=== PATIENT | female | born 1980 | race Hispanic/Latino ===

== ENCOUNTER 2018-08-23 08:28 | Emergency (ER) | payer OTHER ==
[2018-08-23 09:14] LABS: Absolute Lymphocytes (CBC) 2.7 K/uL (0.7-4.9); Absolute Monocytes 0.6 K/uL (0.1-1.3); Absolute Neutrophil 8.3 K/uL (1.8-8.0); Basophils % 1.1 % (0-1.3); Eosinophils % 0.8 % (0-4.4); Hematocrit 49.3 % (36.0-45.0); Lymphocytes % 22.6 % (15.3-44.8); MPV 7.7 fL (7.6-11.3); Monocytes % 5.2 % (3.3-12.3); RBC Red Blood Cell Count 5.84 M/uL (3.86-4.86)
[2018-08-23] MEDS ORDERED: KETOROLAC 30 MG/ML INJ ONE (09:15)
[2018-08-23 09:27] LABS: Potassium 3.7 mmol/L (3.5-5.1)
[2018-08-23] MEDS ORDERED: NA CHLORIDE 0.9% 1,000 ML ONE (09:52)
--- NOTE | 2018-08-23 10:04 | RAD REPORT ---
EXAM DESCRIPTION: RAD - Lumbar Spine 3 Views - 08/23/2018 9:19 am CLINICAL HISTORY: Back pain COMPARISON: None. FINDINGS: A three-view lumbar spine examination was performed. Lumbar bodies are normal in height an d alignment. No fracture or acute bony process seen. No disc space narrowing. No other significant fi ndings. No pars defects identified. IMPRESSION: Negative Lumbar Spine examination.
[2018-08-23 11:00] LABS: Blood Morphology Comment NOT SEEN (NOT SEEN); Platelet Estimate INCR; Platelets, Giant RARE
--- NOTE | 2018-08-23 11:03 | EDPHYS ---
Physician Documentation [facility] Name: Viviana Patricia Age: 37 yrs Sex: Female : 1980 Arrival Date: 08/23/2018 Time: 08:30 Bed 13 Private MD: Laura Mcgarry ED Physician Matti Brown HPI: 08/23 09:28 This 37 yrs old Female presents to ER via Ambulatory with complaints of Low kb Back Pain, Dizziness. 09:28 The patient presents with pain that is acute, with no known mechanism of injury. The kb symptoms are located in the lumbar area. The pain does not radiate. The problem was sustained without known cause. Onset: The symptoms/episode began/occurred yesterday. Modifying factors: The patient symptoms are alleviated by nothing, the patient symptoms are aggravated by any movement. Associated signs and symptoms: Pertinent positives: abdominal pain, vaginal bleeding, dizziness. Severity of symptoms: At their worst the symptoms were moderate, in the emergency department the symptoms are unchanged. The patient has not experienced similar symptoms in the past. The patient has not recently seen a physician. Pt reports she woke up with low back pain yesterday. Denies injury or trauma. Also reports vaginal bleeding for 8 days and suprapubic cramping, as well as dizziness when changing positions. . 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 - Social history:: Smoking status: Patient uses tobacco products, smokes one-half pack cigarettes per day. - Ebola Screening: : No symptoms or risks identified at this time. ROS: 09:26 Constitutional: Negative for fever, chills, and weight loss, Neck: Negative for injury, kb pain, and swelling, Cardiovascular: Negative for chest pain, palpitations, and edema, Respiratory: Negative for shortness of breath, cough, wheezing, and pleuritic chest pain, MS/Extremity: Negative for injury and deformity, Skin: Negative for injury, rash, and discoloration. 09:26 Abdomen/GI: Positive for abdominal cramps. 09:26 Back: Positive for pain with movement, of the lumbar area. 09: : Positive for vaginal bleeding. 09: Neuro: Positive for dizziness. Exam: : Constitutional: This is a well developed, well nourished patient who is awake, alert, kb and in no acute distress. Head/Face: Normocephalic, atraumatic. Eyes: Pupils equal round and reactive to light, extra-ocular motions intact. Lids and lashes normal. Conjunctiva and sclera are non-icteric and not injected. Cornea within normal limits. Periorbital areas with no swelling, redness, or edema. ENT: Nares patent. No nasal discharge, no septal abnormalities noted. Tympanic membranes are normal and external auditory canals are clear. Oropharynx with no redness, swelling, or masses, exudates, or evidence of obstruction, uvula midline. Mucous membranes moist. Neck: Trachea midline, no thyromegaly or masses palpated, and no cervical lymphadenopathy. Supple, full range of motion without nuchal rigidity, or vertebral point tenderness. No Meningismus. Chest/axilla: Normal chest wall appearance and motion. Nontender with no deformity. No lesions are appreciated. Cardiovascular: Regular rate and rhythm with a normal S1 and S2. No gallops, murmurs, or rubs. Normal PMI, no JVD. No pulse deficits. Respiratory: Lungs have equal breath sounds bilaterally, clear to auscultation and percussion. No rales, rhonchi or wheezes noted. No increased work of breathing, no retractions or nasal flaring. Abdomen/GI: Soft, non-tender, with normal bowel sounds. No distension or tympany. No guarding or rebound. No evidence of tenderness throughout. Skin: Warm, dry with normal turgor. Normal color with no rashes, no lesions, and no evidence of cellulitis. MS/ Extremity: Pulses equal, no cyanosis. Neurovascular intact. Full, normal range of motion. Neuro: Awake and alert, GCS 15, oriented to person, place, time, and situation. Cranial nerves II-XII grossly intact. Motor strength 5/5 in all extremities. Sensory grossly intact. Cerebellar exam normal. Normal gait. 09:26 Back: pain, that is mild, that is moderate, of the lumbar area, CVA tenderness, is absent. Vital Signs: 08:48 BP 159 / 117; Pulse 104; Resp 16 S; Temp 98.4(O); Pulse Ox 99% on R/A; Weight 83.91 kg jl7 (R); Height 5 ft. 1 in. (154.94 cm) (R); Pain 10/10; 08:57 BP 141 / 93 Sitting; Pulse 107; Resp 18; Pulse Ox 98% on R/A; mh5 08:59 BP 133 / 96 Standing; Pulse 107; Resp 20; Pulse Ox 97% on R/A; mh5 09:01 BP 139 / 90 Supine; Pulse 102; Resp 20; Pulse Ox 99% on R/A; 5 09:44 BP 134 / 83; Pulse 100; Resp 16 S; Pulse Ox 99% on R/A; Pain 10/10; jl7 10:57 BP 117 / 72; Pulse 86; Resp 17 S; Pulse Ox 98% on R/A; jl7 08:48 Body Mass Index 34.96 (83.91 kg, 154.94 cm) 7 MDM: 08:31 Patient medically screened. 09:26 Data reviewed: vital signs, nurses notes. Data interpreted: Pulse oximetry: on room air kb is 99 %. Interpretation: normal. 10:13 Counseling: I had a detailed discussion with the patient and/or guardian regarding: the kb historical points, exam findings, and any diagnostic results supporting the discharge/admit diagnosis, lab results, radiology results, the need for outpatient follow up, a family practitioner, to return to the emergency department if symptoms worsen or persist or if there are any questions or concerns that arise at home. 08/23 08:38 Order name: CBC with Diff; Complete Time: 11:02 kb 08/23 08:38 Order name: Basic Metabolic Panel; Complete Time: 09:30 kb 08/23 08:38 Order name: Lumbar Spine (3 Views) XRAY; Complete Time: 10:05 kb 08/23 09:19 Order name: Urine Dipstick--Ancillary (enter results) eb 08/23 09:19 Order name: Urine --Ancillary (enter results) 08/23 09:30 Order name: Manual Differential; Complete Time: 11:02 [facility] 08/23 08:38 Order name: Urine Dipstick-Ancillary (obtain specimen); Complete Time: 09:10 kb 08/23 08:38 Order name: Orthostatics; Complete Time: 09:10 kb 08/23 08:38 Order name: IV Start; Complete Time: 09:10 kb Administered Medications: 09:09 Drug: TORadol 30 mg Route: IVP; Site: left antecubital; jl7 09:44 Follow up: Response: No adverse reaction; Pain is unchanged, physician notified jl7 09:43 Drug: NS 0.9% 1000 ml Route: IV; Rate: 1000 ml; Site: left antecubital; jl7 11:25 Follow up: IV Status: Completed infusion jl7 Disposition: 08/24 08:54 Co-signature as Attending Physician, Matti Brown MD I agree with the assessment and dmitriy plan of care. Disposition: 08/23/18 11:02 Discharged to Home. Impression: Volume depletion, Low back pain. - Condition is Stable. - Discharge Instructions: Musculoskeletal Pain, Back Pain, Adult, Tfti-iq-Tvyn, Dehydration, Adult, Sdki-bg-Peck, Back Exercises, Lpqq-sl-Wkzy. - Prescriptions for Cyclobenzaprine 10 mg Oral Tablet - take 1 tablet by ORAL route every 8 hours As needed; 21 tablet. Diclofenac Sodium 75 mg Oral Tablet, Delayed Release (E.C.) - take 1 tablet by ORAL route 2 times per day As needed; 30 tablet. - Medication Reconciliation Form, Thank You Letter, Antibiotic Education, Prescription Opioid Use form. - Follow up: Emergency Department; When: As needed; Reason: Worsening of condition. Follow up: Private Physician; When: 2 - 3 days; Reason: Recheck today's complaints, Continuance of care, Re-evaluation by your physician. Signatures: Dispatcher [employer] Grace Shukla, PSYCHOLOGIST CHIEF-C PSYCHOLOGIST CHIEF-Matti Clement MD MD cha Leal, Jahala, RN RN jl7 Corrections: (The following items were deleted from the chart) 08/23 11:27 11:02 08/23/2018 11:02 Discharged to Home. Impression: Volume depletion; Low back pain. jl7 Condition is Stable. Discharge Instructions: Musculoskeletal Pain, Back Pain, Adult, Lpao-wu-Ofbb, Dehydration, Adult, Ibot-xw-Gmxc, Back Exercises, Ldkm-sm-Hyxq. Prescriptions for Cyclobenzaprine 10 mg Oral Tablet - take 1 tablet by ORAL route every 8 hours As needed; 21 tablet, Diclofenac Sodium 75 mg Oral Tablet, Delayed Release (E.C.) - take 1 tablet by ORAL route 2 times per day As needed; 30 tablet. and Forms are Medication Reconciliation Form, Thank You Letter, Antibiotic Education, Prescription Opioid Use. Follow up: Emergency Department; When: As needed; Reason: Worsening of condition. Follow up: Private Physician; When: 2 - 3 days; Reason: Recheck today's complaints, Continuance of care, Re-evaluation by your physician. kb
--- NOTE | 2018-08-23 11:03 | ER ---
Nurse's Notes [facility] Name: Viviana Patricia Age: 37 yrs Sex: Female : 1980 Arrival Date: 08/23/2018 Time: 08:30 Bed 13 Private MD: Laura Mcgarry Diagnosis: Volume depletion;Low back pain Presentation: 08/23 08:43 Presenting complaint: Patient states: Mid-low back pain started yesterday, denies jl7 trauma. Dizziness started this morning. Reports vaginal bleeding x 8 days. Transition of care: patient was not received from another setting of care. Onset of symptoms was August 22, 2018. Risk Assessment: Do you want to hurt yourself or someone else? Patient reports no desire to harm self or others. Initial Sepsis Screen: Does the patient meet any 2 criteria? No. Patient's initial sepsis screen is negative. Does the patient have a suspected source of infection? No. Patient's initial sepsis screen is negative. Care prior to arrival: None. 08:43 Method Of Arrival: Ambulatory [facility] 08:43 Acuity: SAMUEL 3 jl7 Triage Assessment: 08:48 General: Appears in no apparent distress. uncomfortable, Behavior is calm, cooperative, jl7 appropriate for age. Pain: Complains of pain in lumbar area Pain does not radiate. Pain currently is 10 out of 10 on a pain scale. Quality of pain is described as aching, sharp, Pain began 1 day ago. Is continuous. EENT: No signs and/or symptoms were reported regarding the EENT system. Neuro: Level of Consciousness is awake, alert, obeys commands, Oriented to person, place, time, situation. Cardiovascular: Patient's skin is warm and dry. Respiratory: Airway is patent Respiratory effort is even, unlabored, Respiratory pattern is regular, symmetrical. GI: No signs and/or symptoms were reported involving the gastrointestinal system. : No signs and/or symptoms were reported regarding the genitourinary system. Reports vaginal bleeding that is. Derm: Skin is pink, warm \T\ dry. Musculoskeletal: Reports pain in lumbar area. 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 - Social history:: Smoking status: Patient uses tobacco products, smokes one-half pack cigarettes per day. - Ebola Screening: : No symptoms or risks identified at this time. Screenin:45 Abuse screen: Denies threats or abuse. Denies injuries from another. Nutritional [facility] screening: No deficits noted. Tuberculosis screening: No symptoms or risk factors identified. Fall Risk IV access (20 points). Total Amaro Fall Scale indicates No Risk (0-24 pts). Assessment: 08:45 General: See triage assessment. [facility] 09:44 Reassessment: Patient appears in no apparent distress at this time. No changes from [facility] previously documented assessment. Patient and/or family updated on plan of care and expected duration. Pain level reassessed. Patient is alert, oriented x 3, equal unlabored respirations, skin warm/dry/pink. 10:57 Reassessment: Patient appears in no apparent distress at this time. No changes from [facility] previously documented assessment. Patient and/or family updated on plan of care and expected duration. Pain level reassessed. Patient is alert, oriented x 3, equal unlabored respirations, skin warm/dry/pink. Vital Signs: 08:48 BP 159 / 117; Pulse 104; Resp 16 S; Temp 98.4(O); Pulse Ox 99% on R/A; Weight 83.91 kg jl7 (R); Height 5 ft. 1 in. (154.94 cm) (R); Pain 10/10; 08:57 BP 141 / 93 Sitting; Pulse 107; Resp 18; Pulse Ox 98% on R/A; mh5 08:59 BP 133 / 96 Standing; Pulse 107; Resp 20; Pulse Ox 97% on R/A; mh5 09:01 BP 139 / 90 Supine; Pulse 102; Resp 20; Pulse Ox 99% on R/A; mh5 09:44 BP 134 / 83; Pulse 100; Resp 16 S; Pulse Ox 99% on R/A; Pain 10/10; jl7 10:57 BP 117 / 72; Pulse 86; Resp 17 S; Pulse Ox 98% on R/A; jl7 08:48 Body Mass Index 34.96 (83.91 kg, 154.94 cm) jl7 ED Course: 08:30 Patient arrived in ED. as 08:31 Laura Mcgarry MD is Private Physician. as 08:31 Tuyet Denson RN is Primary Nurse. jl7 08:31 Grace Acosta FNP-C [facility]. kb 08:31 Matti Brown MD is Attending Physician. kb 08:45 Triage completed. jl7 08:48 Arm band placed on right wrist. jl7 09:14 Initial lab(s) drawn, by me, sent to lab. Urine collected: clean catch specimen, mh5 cloudy. Inserted saline lock: 22 gauge in left antecubital area, using aseptic technique. Blood collected. 09:15 Patient has correct armband on for positive identification. Placed in gown. Bed in low mh5 position. Call light in reach. Side rails up X 1. Warm blanket given. Pillow given. Pulse ox on. NIBP on. 09:18 Lumbar Spine (3 Views) XRAY In Process Unspecified. EDMS 09:20 Basic Metabolic Panel Sent. 5 09:20 CBC with Diff Sent. 5 09:20 Urine --Ancillary (enter results) Sent. 5 09:20 Urine Dipstick--Ancillary (enter results) Sent. 5 11:26 No provider procedures requiring assistance completed. IV discontinued, intact, jl7 bleeding controlled, No redness/swelling at site. Pressure dressing applied. Administered Medications: 09:09 Drug: TORadol 30 mg Route: IVP; Site: left antecubital; jl7 09:44 Follow up: Response: No adverse reaction; Pain is unchanged, physician notified jl7 09:43 Drug: NS 0.9% 1000 ml Route: IV; Rate: 1000 ml; Site: left antecubital; jl7 11:25 Follow up: IV Status: Completed infusion jl7 Outcome: 11:02 Discharge ordered by . kb 11:25 Discharged to home ambulatory. jl7 11:25 Condition: stable 11:25 Discharge instructions given to patient, Instructed on discharge instructions, follow up and referral plans. medication usage, Demonstrated understanding of instructions, follow-up care, medications, Prescriptions given X 2. 11:27 Patient left the ED. jl7 Signatures: Dispatcher [employer] EDGrace Cordova, COURTNEY SCHAEFER-Yolanda [facility] Tuyet Denson RN RN jl7 Corrections: (The following items were deleted from the chart) 08:52 08:48 LMP 07/14/2018 maggi tay 09:48 09:44 BP 134 / 123; Pulse 100bpm; Resp 16bpm; Spontaneous; Pulse Ox 99% RA; Pain 10/10; maggi jl7
[2018-08-23 11:32] LABS: Urine Blood 3+ (NEG); Urine Glucose NEGATIVE (NEG); Urine Protein 1+ (NEG)
[2018-08-23 11:36] VITALS: TEMP 98.4
[2018-08-23 11:42] VITALS: BP 117/72; O2SAT 98
== END 2018-08-23 11:27 | disposition home or self-care (01) ==
LOC: ER 08:28
DX: E86.9 Volume depletion, unspecified (principal); I10 Essential (primary) hypertension; F20.9 Schizophrenia, unspecified; F31.9 Bipolar disorder, unspecified; F32.9 Major depressive disorder, single episode, unspecified; F41.9 Anxiety disorder, unspecified; F17.210 Nicotine dependence, cigarettes, uncomplicated
CPT/HCPCS: 36415; 72100; 80048; 81003; 81025; 85025; 96361; 96374; 99284; J7030

== ENCOUNTER 2018-12-31 09:57 | Emergency (ER) | payer BC, OTHER ==
[2018-12-31] MEDS ORDERED: hydrOXYzine HCl 25 MG TAB ONE (10:38)
[2018-12-31] MEDS ORDERED: ONDANSETRON 4 MG/2 ML VIAL ONE ×2 (10:38→11:57)
[2018-12-31 11:08] LABS: Absolute Lymphocytes (CBC) 2.8 K/uL (0.7-4.9); Basophils % 1.1 % (0-1.3); Hematocrit 48.5 % (36.0-45.0); Lymphocytes % 29.7 % (15.3-44.8); MPV 7.9 fL (7.6-11.3); RBC Red Blood Cell Count 5.71 M/uL (3.86-4.86)
[2018-12-31 11:20] LABS: ALT/SGPT 69 U/L (12-78); AST/SGOT 43 U/L (15-37); Albumin 3.4 g/dL (3.4-5.0); Alkaline Phosphatase 184 U/L (45-117); BUN Blood Urea Nitrogen 11 mg/dL (7-18); Bicarbonate 29 mmol/L (21-32); Bilirubin Direct < 0.1 mg/dL (0-0.2); Bilirubin Total 0.3 mg/dL (0.2-1.0); Glucose Level 184 mg/dL (74-106); Lipase 125 U/L (73-393); Potassium 3.6 mmol/L (3.5-5.1); Protein, Total 7.8 g/dL (6.4-8.2); Sodium Level 139 mmol/L (136-145)
[2018-12-31] MEDS ORDERED: FAMOTIDINE 20 MG/2 ML VIAL IV ONE (11:57)
[2018-12-31] MEDS ORDERED: NA CHLORIDE 0.9% 1,000 ML ONE (12:41)
[2018-12-31 12:47] LABS: Urine Blood NEGATIVE (NEG); Urine Glucose NEGATIVE (NEG); Urine Protein 1+ (NEG); Urine Specific Gravity >1.030 (1.005-1.030)
--- NOTE | 2018-12-31 12:51 | RAD REPORT ---
EXAM DESCRIPTION: CTAbdomen Pelvis W Contrast - 12/31/2018 12:32 pm CLINICAL HISTORY: Abdominal pain. ABD PAIN COMPARISON: <Comparisons> TECHNIQUE: Biphasic CT imaging of the abdomen and pelvis was performed with 100 ml non-ionic IV cont rast. All CT scans are performed using dose optimization technique as appropriate and may include automated exposure control or mA/KV adjustment according to patient size. FINDINGS: The lung bases are clear. The liver demonstrates diffuse fatty infiltration. Spleen, pancreas, adrenal glands and kidneys are w ithin normal limits. Cholecystectomy. No bowel obstruction, free air, free fluid or abscess. Appendectomy. No evidence of significant lym phadenopathy. No suspicious bony findings. IMPRESSION: No acute intra-abdominal or pelvic finding.
--- NOTE | 2018-12-31 13:20 | ER ---
Nurse's Notes [facility] Name: Viviana Patricia Age: 38 yrs Sex: Female : 1980 Arrival Date: 12/31/2018 Time: 09:58 Bed 17 Private MD: Diagnosis: Rash and other nonspecific skin eruption;Generalized abdominal pain Presentation: 12/31 10:04 Presenting complaint: Patient states: I have been nauseous for the last few days, la1 having belly pain, pain in both my arms and legs, dizziness. Transition of care: patient was not received from another setting of care. Onset of symptoms was December 31, 2018. Risk Assessment: Do you want to hurt yourself or someone else? Patient reports no desire to harm self or others. Initial Sepsis Screen: Does the patient meet any 2 criteria? No. Patient's initial sepsis screen is negative. Does the patient have a suspected source of infection? No. Patient's initial sepsis screen is negative. Care prior to arrival: None. 10:04 Method Of Arrival: Ambulatory la1 10:04 Acuity: SAMUEL 3 la1 Historical: - Allergies: 10:05 No Known Allergies; la1 - PMHx: 10:05 Anxiety; Bipolar disorder; chronic painL shoulder-bursitis; Depression; Hypertension; la1 Schizophrenia; - PSHx: 10:05 right ovarian sx; Cholecystectomy; Appendectomy; ; D \T\ C; la1 - Immunization history:: Adult Immunizations up to date. - Social history:: Smoking status: Patient uses tobacco products, smokes one-half pack cigarettes per day. - Ebola Screening: : No symptoms or risks identified at this time. Screenin:20 Abuse screen: Denies threats or abuse. Nutritional screening: No deficits noted. aa5 Tuberculosis screening: No symptoms or risk factors identified. Fall Risk None identified. Assessment: 10:20 General: Appears comfortable, Behavior is calm, cooperative. Pain: Complains of pain in aa5 right upper quadrant Pain does not radiate. Pain currently is 8 out of 10 on a pain scale. Quality of pain is described as sharp, Pain began 2-3 days ago. Is continuous. Neuro: Level of Consciousness is awake, alert, obeys commands, Oriented to person, place, time, situation. Cardiovascular: Heart tones S1 S2 present Rhythm is regular. Respiratory: Airway is patent Respiratory effort is even, unlabored, Respiratory pattern is regular, symmetrical, Breath sounds are clear bilaterally. GI: Abdomen is round Bowel sounds present X 4 quads. Abd is soft and non tender X 4 quads. Reports nausea, Patient currently denies diarrhea, vomiting. : No signs and/or symptoms were reported regarding the genitourinary system. EENT: No signs and/or symptoms were reported regarding the EENT system. Derm: Skin is pink, warm \T\ dry. Rash noted that is itchy, red, raised, on right arm, left arm, right leg and left leg. Musculoskeletal: Range of motion: intact in all extremities. 12:00 Reassessment: Patient is alert, oriented x 3, equal unlabored respirations, skin aa5 warm/dry/pink. Patient states symptoms have not improved. DRY KILN OPERATOR notified. . 13:00 Reassessment: Patient is alert, oriented x 3, equal unlabored respirations, skin aa5 warm/dry/pink. Patient states feeling better. 13:41 Reassessment: Patient is alert, oriented x 3, equal unlabored respirations, skin aa5 warm/dry/pink. Patient states feeling better. Vital Signs: 10:05 BP 138 / 91; Pulse 85; Resp 16; Temp 97.8; Pulse Ox 98% on R/A; Weight 95.25 kg; Height la1 5 ft. 2 in. (157.48 cm); 10:05 Body Mass Index 38.41 (95.25 kg, 157.48 cm) la1 ED Course: 09:58 Patient arrived in ED. cf2 10:05 Triage completed. la1 10:06 Arm band placed on right wrist. la1 10:17 EKG done, by tower technician. reviewed by Matti Brown MD. sm3 10:20 Patient has correct armband on for positive identification. Placed in gown. Bed in low aa5 position. Call light in reach. Side rails up X2. 10:26 More Francisco, MARE is Primary Nurse. aa5 10:28 Grace Acosta FNP-C is PHCP. kb 10:28 Matti Brown MD is Attending Physician. kb 10:40 Initial lab(s) drawn, by id, sent to lab. Inserted saline lock: 20 gauge in right aa5 antecubital area, using aseptic technique. Blood collected. 12:33 CT Abd/Pelvis - IV Contrast Only In Process Unspecified. EDMS 13:41 No provider procedures requiring assistance completed. IV discontinued, intact, aa5 bleeding controlled, No redness/swelling at site. Pressure dressing applied. Administered Medications: 10:39 Drug: Atarax 50 mg Route: PO; aa5 11:30 Follow up: Response: No adverse reaction aa5 10:40 Drug: Zofran 4 mg Route: IVP; Site: right antecubital; aa5 10:50 Follow up: Response: No adverse reaction aa5 12:03 Drug: Zofran 4 mg Route: IVP; Site: right antecubital; aa5 12:10 Follow up: Response: No adverse reaction aa5 12:03 Drug: Pepcid 20 mg Route: IVP; Site: right antecubital; aa5 12:10 Follow up: Response: No adverse reaction aa5 12:50 Drug: NS 0.9% 1000 ml Route: IV; Rate: 1000 ml; Site: right antecubital; aa5 13:38 Follow up: IV Status: Completed infusion; IV Intake: 1000ml aa5 Intake: 13:38 IV: 1000ml; Total: 1000ml. aa5 Outcome: 13:19 Discharge ordered by . kb 13:41 Discharged to home ambulatory. aa5 13:41 Condition: stable 13:41 Discharge instructions given to patient, Instructed on discharge instructions, follow up and referral plans. medication usage, Demonstrated understanding of instructions, follow-up care, medications, Prescriptions given X 4. 13:43 Patient left the ED. aa5 Signatures: Dispatcher [employer] EDMS Grace Acosta, COURTNEY SCHAEFER-More Mckinley, RN RN aa5 Cedrick Perez, RN RN sandra1 Sierra Espinosa 3 Kendal Byrd
--- NOTE | 2018-12-31 13:20 | EDPHYS ---
Physician Documentation [facility] Name: Viviana Patricia Age: 38 yrs Sex: Female : 1980 Arrival Date: 12/31/2018 Time: 09:58 Bed 17 Private MD: MARY Physician Matti Brown HPI: 12/31 11:03 This 38 yrs old Female presents to ER via Ambulatory with complaints of kb Nausea, Abdominal Pain. 11:03 The patient presents with abdominal pain that is diffuse. Onset: The symptoms/episode kb began/occurred 2 day(s) ago. The symptoms do not radiate. Associated signs and symptoms: Pertinent positives: nausea. The symptoms are described as constant. Modifying factors: The symptoms are alleviated by nothing, the symptoms are aggravated by nothing. Severity of pain: At its worst the pain was moderate in the emergency department the pain is unchanged. The patient has not experienced similar symptoms in the past. The patient has not recently seen a physician. Pt reports abd pain, nausea and a rash with itching that started 2-3 days ago. Historical: - Allergies: 10:05 No Known Allergies; la1 - PMHx: 10:05 Anxiety; Bipolar disorder; chronic painL shoulder-bursitis; Depression; Hypertension; la1 Schizophrenia; - PSHx: 10:05 right ovarian sx; Cholecystectomy; Appendectomy; ; D \T\ C; la1 - Immunization history:: Adult Immunizations up to date. - Social history:: Smoking status: Patient uses tobacco products, smokes one-half pack cigarettes per day. - Ebola Screening: : No symptoms or risks identified at this time. ROS: 11:01 Constitutional: Negative for fever, chills, and weight loss, ENT: Negative for injury, kb pain, and discharge, Neck: Negative for injury, pain, and swelling, Cardiovascular: Negative for chest pain, palpitations, and edema, Respiratory: Negative for shortness of breath, cough, wheezing, and pleuritic chest pain, Back: Negative for injury and pain, : Negative for injury, bleeding, discharge, and swelling, MS/Extremity: Negative for injury and deformity, Neuro: Negative for headache, weakness, numbness, tingling, and seizure. 11:01 Abdomen/GI: Positive for abdominal pain, nausea, Negative for vomiting, diarrhea, constipation. 11:01 Skin: Positive for rash, diffusely. Exam: 11:01 Constitutional: This is a well developed, well nourished patient who is awake, alert, kb and in no acute distress. Head/Face: Normocephalic, atraumatic. ENT: Nares patent. No nasal discharge, no septal abnormalities noted. Tympanic membranes are normal and external auditory canals are clear. Oropharynx with no redness, swelling, or masses, exudates, or evidence of obstruction, uvula midline. Mucous membranes moist. Neck: Trachea midline, no thyromegaly or masses palpated, and no cervical lymphadenopathy. Supple, full range of motion without nuchal rigidity, or vertebral point tenderness. No Meningismus. Chest/axilla: Normal chest wall appearance and motion. Nontender with no deformity. No lesions are appreciated. Cardiovascular: Regular rate and rhythm with a normal S1 and S2. No gallops, murmurs, or rubs. Normal PMI, no JVD. No pulse deficits. Respiratory: Lungs have equal breath sounds bilaterally, clear to auscultation and percussion. No rales, rhonchi or wheezes noted. No increased work of breathing, no retractions or nasal flaring. Abdomen/GI: Soft, non-tender, with normal bowel sounds. No distension or tympany. No guarding or rebound. No evidence of tenderness throughout. Back: No spinal tenderness. No costovertebral tenderness. Full range of motion. MS/ Extremity: Pulses equal, no cyanosis. Neurovascular intact. Full, normal range of motion. Neuro: Awake and alert, GCS 15, oriented to person, place, time, and situation. Cranial nerves II-XII grossly intact. Motor strength 5/5 in all extremities. Sensory grossly intact. Cerebellar exam normal. Normal gait. 11:01 Skin: rash can be described as macular, papular, and is diffusely located. Vital Signs: 10:05 BP 138 / 91; Pulse 85; Resp 16; Temp 97.8; Pulse Ox 98% on R/A; Weight 95.25 kg; Height la1 5 ft. 2 in. (157.48 cm); 10:05 Body Mass Index 38.41 (95.25 kg, 157.48 cm) la1 MDM: 10:28 Patient medically screened. 11:02 Data reviewed: vital signs, nurses notes. Data interpreted: Pulse oximetry: on room air kb is 98 %. Interpretation: normal. 13:34 Counseling: I had a detailed discussion with the patient and/or guardian regarding: the kb historical points, exam findings, and any diagnostic results supporting the discharge/admit diagnosis, lab results, radiology results, the need for outpatient follow up, a family practitioner, to return to the emergency department if symptoms worsen or persist or if there are any questions or concerns that arise at home. 12/31 10:36 Order name: CBC with Diff; Complete Time: 11:16 kb 12/31 10:36 Order name: Basic Metabolic Panel; Complete Time: 11:27 kb 12/31 10:36 Order name: Hepatic Function; Complete Time: 11:27 kb 12/31 10:36 Order name: Lipase; Complete Time: 11:27 kb 12/31 12:30 Order name: Urine Dipstick--Ancillary (enter results); Complete Time: 12:49 hb 12/31 12:30 Order name: Urine --Ancillary (enter results); Complete Time: 12:49 hb 12/31 10:36 Order name: IV Saline Lock; Complete Time: 10:48 kb 12/31 10:36 Order name: Labs collected and sent; Complete Time: 10:48 kb 12/31 12:08 Order name: CT Abd/Pelvis - IV Contrast Only; Complete Time: 12:55 kb Administered Medications: 10:39 Drug: Atarax 50 mg Route: PO; aa5 11:30 Follow up: Response: No adverse reaction aa5 10:40 Drug: Zofran 4 mg Route: IVP; Site: right antecubital; aa5 10:50 Follow up: Response: No adverse reaction aa5 12:03 Drug: Zofran 4 mg Route: IVP; Site: right antecubital; aa5 12:10 Follow up: Response: No adverse reaction aa5 12:03 Drug: Pepcid 20 mg Route: IVP; Site: right antecubital; aa5 12:10 Follow up: Response: No adverse reaction aa5 12:50 Drug: NS 0.9% 1000 ml Route: IV; Rate: 1000 ml; Site: right antecubital; aa5 13:38 Follow up: IV Status: Completed infusion; IV Intake: 1000ml aa5 Disposition: 15:32 Co-signature as Attending Physician, Matti Brown MD I agree with the assessment and dmitriy plan of care. PA/CONSULTING HR PROFESSIONAL's history reviewed, patient interviewed, and examined. Disposition: 12/31/18 13:19 Discharged to Home. Impression: Rash and other nonspecific skin eruption, Generalized abdominal pain. - Condition is Stable. - Discharge Instructions: Abdominal Pain, Adult, [id number], Rash, [id number], Allergies, [id number]. - Prescriptions for Hydroxyzine HCl 50 mg Oral Tablet - take 1 tablet by ORAL route every 8 hours As needed; 20 tablet. Pepcid 20 mg Oral Tablet - take 1 tablet by ORAL route every 12 hours for 5 days; 10 tablet. Prednisone 20 mg Oral Tablet - take 1 tablet by ORAL route once daily for 5 days; 5 tablet. Zofran 4 mg Oral Tablet - take 1 tablet by ORAL route every 6 hours As needed; 20 tablet. - Medication Reconciliation Form, Thank You Letter, Antibiotic Education, Prescription Opioid Use, Work release form form. - Follow up: Emergency Department; When: As needed; Reason: Worsening of condition. Follow up: Private Physician; When: 2 - 3 days; Reason: Recheck today's complaints, Continuance of care, Re-evaluation by your physician. Signatures: Dispatcher [employer] EDLA Grace Acosta, [employer] RADIO OPERATOR-C [employer] RADIO OPERATOR-Matti Clement MD MD cha Calderon, Audri, RN RN aa5 Cedrick Perez RN RN la1 Corrections: (The following items were deleted from the chart) 13:43 13:19 12/31/2018 13:19 Discharged to Home. Impression: Rash and other nonspecific skin aa5 eruption; Generalized abdominal pain. Condition is Stable. Forms are Medication Reconciliation Form, Thank You Letter, Antibiotic Education, Prescription Opioid Use. Follow up: Emergency Department; When: As needed; Reason: Worsening of condition. Follow up: Private Physician; When: 2 - 3 days; Reason: Recheck today's complaints, Continuance of care, Re-evaluation by your physician. kb
[2018-12-31 14:21] VITALS: BP 138/91; TEMP 97.8; O2SAT 98
--- NOTE | 2019-01-01 07:16 | EKG ---
Test Date: 2018-12-31 Test Time: 10:14:03 Bilingual Teacher Aide: MATT MEASUREMENT RESULTS: Intervals: Rate: 76 MT: 166 QRSD: 86 QT: 378 QTc: 425 [place]: P: 65 MT: 166 QRS: 81 T: 57 INTERPRETIVE STATEMENTS: Normal sinus rhythm Right atrial enlargement Borderline ECG Compared to ECG 05/29/2017 10:41:44 Sinus tachycardia no longer present Electronically Signed On 01-01-19 07:13:40 CDT by Dario Cortez
== END 2018-12-31 13:43 | disposition home or self-care (01) ==
LOC: ER 09:57
DX: R10.84 Generalized abdominal pain (principal); I10 Essential (primary) hypertension; F17.210 Nicotine dependence, cigarettes, uncomplicated
CPT/HCPCS: 96361; 93005; 85025; 80048; 36415; 81025; 80076; 81003; 83690; 74177; 96375; 96374; 99284; Q9967; J7030; J2405 ×2

== ENCOUNTER 2019-03-17 10:43 | Emergency (ER) | payer BC ==
[2019-03-17 11:38] LABS: Absolute Lymphocytes (CBC) 2.6 K/uL (0.7-4.9); Basophils % 0.3 % (0-1.3); Hematocrit 45.4 % (36.0-45.0); Lymphocytes % 32.4 % (15.3-44.8); RBC Red Blood Cell Count 5.43 M/uL (3.86-4.86)
[2019-03-17 11:49] LABS: Protime INR 1.08
[2019-03-17 12:01] LABS: ALT/SGPT 58 U/L (12-78); AST/SGOT 34 U/L (15-37); Albumin 3.4 g/dL (3.4-5.0); Alkaline Phosphatase 174 U/L (45-117); BUN Blood Urea Nitrogen 8 mg/dL (7-18); Bicarbonate 26 mmol/L (21-32); Bilirubin Direct < 0.1 mg/dL (0-0.2); Bilirubin Total 0.4 mg/dL (0.2-1.0); Glucose Level 97 mg/dL (74-106); Lipase 103 U/L (73-393); Magnesium 2.3 mg/dL (1.8-2.4); NT PRO-BNP 31 pg/mL (<125); Potassium 3.7 mmol/L (3.5-5.1); Protein, Total 7.6 g/dL (6.4-8.2); Sodium Level 137 mmol/L (136-145); Troponin (Emerg Dept Use Only) < 0.02 ng/mL (0.0-0.045)
--- NOTE | 2019-03-17 12:03 | RAD REPORT ---
EXAM DESCRIPTION: [facility] Single View03/17/2019 11:45 am CLINICAL HISTORY: Chest pain COMPARISON: 2018 FINDINGS: The lungs appear clear of acute infiltrate. The heart is normal size IMPRESSION: No acute abnormalities displayed
--- NOTE | 2019-03-17 12:46 | EKG ---
Test Date: 2019-03-17 Test Time: 11:04:27 Health Analyst: KAYLIN MEASUREMENT RESULTS: Intervals: Rate: 80 [place]: 162 QRSD: 82 QT: 410 QTc: 472 [place]: P: 63 [place]: 162 QRS: 41 T: 45 INTERPRETIVE STATEMENTS: Normal sinus rhythm Normal ECG Compared to ECG 12/31/2018 10:14:03 Atrial abnormality no longer present Electronically Signed On 03-17-19 12:45:18 LENS MAKER by Olivier Mcenal
[2019-03-17] MEDS ORDERED: ALBUTEROL 2.5 MG/3 ML NEB SOL ONE (12:59)
[2019-03-17] MEDS ORDERED: IPRATROPIUM BROM 0.5MG/2.5ML ONE (12:59)
--- NOTE | 2019-03-17 13:04 | ER ---
Nurse's Notes [facility] Name: Viviana Patricia Age: 38 yrs Sex: Female : 1980 Arrival Date: 03/17/2019 Time: 10:50 Bed 5 Private MD: Diagnosis: Other chest pain Presentation: 03/17 11:00 Presenting complaint: Patient states: chest pressure radiating to neck that began 2 aa5 days ago. Pt reports SOB. Pt denies cough/congestion. Reports fatigue. Transition of care: patient was not received from another setting of care. Onset of symptoms was March 2019. Risk Assessment: Do you want to hurt yourself or someone else? Patient reports no desire to harm self or others. Initial Sepsis Screen: Does the patient meet any 2 criteria? No. Patient's initial sepsis screen is negative. Does the patient have a suspected source of infection? No. Patient's initial sepsis screen is negative. Care prior to arrival: None. 11:00 Acuity: SAMUEL 3 aa5 11:00 Method Of Arrival: Ambulatory aa5 RADIOGRAPHER MAMMOGRAPHER: 11:02 LMP 03/15/2019 aa5 Historical: - Allergies: 11:02 No Known Allergies; aa5 - PMHx: 11:02 Anxiety; Bipolar disorder; chronic painL shoulder-bursitis; Depression; Hypertension; aa5 Schizophrenia; Hyperlipidemia; Diabetes - IDDM; - PSHx: 11:02 right ovarian sx; Cholecystectomy; Appendectomy; ; D \T\ C; aa5 - Immunization history:: Flu vaccine is not up to date. - Social history:: Smoking status: Patient uses tobacco products, smokes one-half pack cigarettes per day. - Ebola Screening: : No symptoms or risks identified at this time. Screenin:32 Abuse screen: Denies threats or abuse. Denies injuries from another. Nutritional jl7 screening: No deficits noted. Tuberculosis screening: No symptoms or risk factors identified. Fall Risk IV access (20 points). Total Amaro Fall Scale indicates No Risk (0-24 pts). Assessment: 11:32 General: Appears in no apparent distress. uncomfortable, Behavior is cooperative, jl7 anxious. Pain: Complains of pain in chest Pain radiates to neck Pain currently is 9 out of 10 on a pain scale. Quality of pain is described as pressure, sharp, Pain began 2-3 days ago. Is continuous. Neuro: Level of Consciousness is awake, alert, obeys commands, Oriented to person, place, time, situation. Cardiovascular: Heart tones S1 S2 present Patient's skin is warm and dry. Rhythm is regular. Respiratory: Airway is patent Respiratory effort is even, unlabored, Respiratory pattern is regular, symmetrical, Breath sounds are clear bilaterally. GI: Abdomen is round non-distended, Bowel sounds present X 4 quads. Abd is soft X 4 quads Abdomen is tender to palpation in epigastric area and right upper quadrant. : No signs and/or symptoms were reported regarding the genitourinary system. EENT: No signs and/or symptoms were reported regarding the EENT system. Derm: Skin is pink, warm \T\ dry. Musculoskeletal: No signs and/or symptoms reported regarding the musculoskeletal system. 12:30 Reassessment: Patient appears in no apparent distress at this time. Patient and/or jl7 family updated on plan of care and expected duration. Pain level reassessed. Patient is alert, oriented x 3, equal unlabored respirations, skin warm/dry/pink. Patient states feeling better. Patient states symptoms have improved. Vital Signs: 11:02 BP 134 / 84; Pulse 85; Resp 18 S; Temp 98.2(O); Pulse Ox 99% on R/A; Weight 95.25 kg aa (R); Height 5 ft. 2 in. (157.48 cm) (R); Pain 9/10; 11:35 BP 116 / 80; Pulse 81; Resp 16 S; Pulse Ox 100% on R/A; Pain 9/10; jl7 12:08 BP 105 / 73; Pulse 94; Resp 16; Pulse Ox 98% ; sv 12:50 BP 105 / 73; Pulse 88; Resp 16; Pulse Ox 99% ; sv 13:30 BP 111 / 79; Pulse 80; Resp 16 S; Pulse Ox 100% on R/A; jl7 11:02 Body Mass Index 38.41 (95.25 kg, 157.48 cm) [facility] ED Course: 10:50 Patient arrived in ED. aa5 11:00 Arm band placed on. aa5 11:01 Triage completed. aa5 11:04 EKG completed in triage. Results shown to . aa5 11:06 Tuyet Denson RN is Primary Nurse. jl7 11:08 Matti Michelle PA is PHCP. cp 11:08 Mayur Roth MD is Attending Physician. cp 11:20 Missed attempt(s): 20 gauge in right antecubital area. Bleeding controlled, band aid jl7 applied, catheter tip intact. 11:25 Initial lab(s) drawn, by me, sent to lab. Inserted saline lock: 22 gauge in left jl7 forearm, using aseptic technique. Blood collected. Patient maintains SpO2 saturation greater than 95% on room air. 11:32 Patient has correct armband on for positive identification. Placed in gown. Bed in low jl7 position. Call light in reach. Side rails up X 1. color television console monitor on. Pulse ox on. NIBP on. Warm blanket given. 11:44 XRAY Chest (1 view) In Process Unspecified. EDMS 13:41 No provider procedures requiring assistance completed. IV discontinued, intact, jl7 bleeding controlled, No redness/swelling at site. Pressure dressing applied. Administered Medications: 13:03 Drug: Albuterol 2.5 mg Route: Inhalation; jl7 13:40 Follow up: Response: No adverse reaction jl7 13:03 Drug: AtroVENT Aerosol 0.5 mg Route: Inhalation; jl7 13:40 Follow up: Response: No adverse reaction jl7 Outcome: 13:03 Discharge ordered by MD. cp 13:41 Discharged to home ambulatory. jl7 13:41 Condition: stable 13:41 Discharge instructions given to patient, Instructed on discharge instructions, follow up and referral plans. medication usage, Demonstrated understanding of instructions, follow-up care, medications, Prescriptions given X 2. 13:41 Patient left the ED. jl7 Signatures: Dispatcher [employer] EDWY Sahra Hawthorne, RN More Parker RN RN aa5 Matti Michelle PA PA cp Leal, Jahala, RN RN jl7
--- NOTE | 2019-03-17 13:05 | EDPHYS ---
Physician Documentation [facility] Name: Viviana Patricia Age: 38 yrs Sex: Female : 1980 Arrival Date: 03/17/2019 Time: 10:50 Bed 5 Private MD: ED Physician Mayur Roth HPI: 03/17 11:20 This 38 yrs old Female presents to ER via Ambulatory with complaints of Chest cp Pain. 11:20 The patient or guardian reports chest pain that is located primarily in the anterior cp chest wall, bilaterally. 11:20 The pain radiates to neck. cp 11:20 Associated signs and symptoms: Pertinent positives: lightheadedness, shortness of cp breath, Pertinent negatives: abdominal pain, cough, diaphoresis, headache, lower extremity pain, lower extremity swelling, palpitations, recent travel, syncope. The chest pain is described as a heaviness, a pressure, sharp. Duration: The patient or guardian reports multiple episodes, that are intermittent. Severity of pain: in the emergency department the pain has improved moderately. 11:20 Patient reports chest pain started 2 days ago. cp DIRECTOR EMERGENCY: 11:02 LMP 03/15/2019 aa5 Historical: - Allergies: 11:02 No Known Allergies; aa5 - PMHx: 11:02 Anxiety; Bipolar disorder; chronic painL shoulder-bursitis; Depression; Hypertension; aa5 Schizophrenia; Hyperlipidemia; Diabetes - IDDM; - PSHx: 11:02 right ovarian sx; Cholecystectomy; Appendectomy; ; D \T\ C; aa5 - Immunization history:: Flu vaccine is not up to date. - Social history:: Smoking status: Patient uses tobacco products, smokes one-half pack cigarettes per day. - Ebola Screening: : No symptoms or risks identified at this time. ROS: 11:25 Eyes: Negative for injury, pain, redness, and discharge. cp 11:25 Constitutional: Positive for fatigue, Negative for body aches, chills, fever. cp 11:25 ENT: Negative for drainage from ear(s), ear pain, sore throat, difficulty swallowing, cp difficulty handling secretions. 11:25 Neck: Negative for pain with movement, pain at rest, stiffness, bony tenderness. 11:25 Cardiovascular: Positive for chest pain, Negative for edema, palpitations. 11:25 Respiratory: Positive for shortness of breath, Negative for cough, wheezing. 11:25 Abdomen/GI: Negative for abdominal pain, nausea, vomiting, and diarrhea, constipation, black/tarry stool, rectal bleeding. 11:25 Back: Negative for injury or acute deformity. 11:25 : Negative for urinary symptoms. 11:25 Skin: Negative for cellulitis, rash. 11:25 Neuro: Negative for altered mental status, dizziness, headache, numbness, syncope, weakness. 11:25 All other systems are negative. Exam: 11:10 ECG was reviewed by the Attending Physician. cp 11:30 Constitutional: The patient appears in no acute distress, alert, awake, cp non-diaphoretic, non-toxic, well developed, well nourished. 11:30 Head/Face: Normocephalic, atraumatic. Eyes: Pupils equal round and reactive to light, cp extra-ocular motions intact. Lids and lashes normal. Conjunctiva and sclera are non-icteric and not injected. Cornea within normal limits. Periorbital areas with no swelling, redness, or edema. ENT: Nares patent. No nasal discharge, no septal abnormalities noted. Tympanic membranes are normal and external auditory canals are clear. Oropharynx with no redness, swelling, or masses, exudates, or evidence of obstruction, uvula midline. Mucous membranes moist. 11:30 Chest/axilla: Inspection: normal, Palpation: crepitus, is not appreciated, tenderness, that is mild, of the anterior aspect of left upper chest. 11:30 Cardiovascular: Rate: normal, Rhythm: regular, Pulses: Pulses are 2+ in right radial artery and left radial artery. Heart sounds: murmur, not appreciated, Edema: is not appreciated, JVD: is not appreciated. 11:30 Respiratory: the patient does not display signs of respiratory distress, Respirations: normal, no use of accessory muscles, no retractions, no splinting, no tachypnea, labored breathing, is not present, Breath sounds: bronchial sounds, that are mild, are heard diffusely, decreased breath sounds, are not appreciated, stridor, is not appreciated, wheezing: is not appreciated. 11:30 Abdomen/GI: Inspection: abdomen appears normal, Bowel sounds: active, all quadrants, Palpation: soft, in all quadrants, mild abdominal tenderness, in the epigastric area and right upper quadrant, voluntary guarding, is not appreciated, involuntary guarding, is not appreciated. 11:30 Back: ROM is normal. 11:30 Skin: no rash present. 11:30 Neuro: Orientation: to person, place \T\ time. Mentation: is normal, Cerebellar function: is grossly normal, Motor: moves all fours, strength is normal, Sensation: is normal. Vital Signs: 11:02 BP 134 / 84; Pulse 85; Resp 18 S; Temp 98.2(O); Pulse Ox 99% on R/A; Weight 95.25 kg aa5 (R); Height 5 ft. 2 in. (157.48 cm) (R); Pain 9/10; 11:35 BP 116 / 80; Pulse 81; Resp 16 S; Pulse Ox 100% on R/A; Pain 9/10; jl7 12:08 BP 105 / 73; Pulse 94; Resp 16; Pulse Ox 98% ; sv 12:50 BP 105 / 73; Pulse 88; Resp 16; Pulse Ox 99% ; sv 13:30 BP 111 / 79; Pulse 80; Resp 16 S; Pulse Ox 100% on R/A; jl7 11:02 Body Mass Index 38.41 (95.25 kg, 157.48 cm) aa5 MDM: 11:08 Patient medically screened. cp 11:35 Differential diagnosis: acute myocardial infarction, acute pericarditis, anxiety, cp costochondritis, myocarditis, pericarditis, pleurisy, pneumonia, pneumothorax, pulmonary embolus, stable angina, unstable angina. 13:03 Data reviewed: vital signs, nurses notes, lab test result(s), EKG, radiologic studies, cp plain films. 13:03 Test interpretation: by ED physician or midlevel provider: ECG, plain radiologic cp studies, chest xray negative for infiltrates. Counseling: I had a detailed discussion with the patient and/or guardian regarding: the historical points, exam findings, and any diagnostic results supporting the discharge/admit diagnosis, lab results, radiology results, the need for outpatient follow up, a family practitioner, to return to the emergency department if symptoms worsen or persist or if there are any questions or concerns that arise at home. Response to treatment: the patient's symptoms have mildly improved after treatment, and as a result, I will discharge patient. Special discussion: Based on the patient's history, exam, and Dx evaluation, there is no indication for emergent intervention or inpatient Tx. It is understood by the patient/guardian that if the Sx's persist or worsen they need to return immediately for re-evaluation. 03/17 11:20 Order name: Basic Metabolic Panel; Complete Time: 12:35 cp 03/17 12:38 Interpretation: Normal except: CA 8.3. cp 03/17 11:20 Order name: CBC with Diff; Complete Time: 12:35 cp 03/17 12:38 Interpretation: Normal except: RBC 5.43; HGB 16.1; HCT 45.4. cp 03/17 11:20 Order name: LFT's; Complete Time: 12:35 cp 03/17 11:20 Order name: Magnesium; Complete Time: 12:35 cp 03/17 11:20 Order name: NT PRO-BNP; Complete Time: 12:35 cp 03/17 11:20 Order name: PT-INR; Complete Time: 12:35 cp 03/17 11:20 Order name: Troponin (emerg Dept Use Only); Complete Time: 12:35 cp 03/17 11:20 Order name: XRAY Chest (1 view); Complete Time: 12:35 cp 03/17 11:20 Order name: EKG; Complete Time: 11:21 cp 03/17 11:20 Order name: Cardiac monitoring; Complete Time: 11:57 cp 03/17 11:20 Order name: Lipase; Complete Time: 12:35 cp 03/17 11:20 Order name: EKG - Nurse/Tech; Complete Time: 11:57 cp 03/17 11:20 Order name: IV Saline Lock; Complete Time: 11:57 cp 03/17 11:20 Order name: Labs collected and sent; Complete Time: 11:57 cp 03/17 11:20 Order name: O2 Per Protocol; Complete Time: 11:57 cp 03/17 11:20 Order name: O2 Sat Monitoring; Complete Time: 11:57 cp 03/17 11:20 Order name: NPO; Complete Time: 11:57 cp EC:10 Rate is 80 beats/min. Rhythm is regular. CA interval is normal. QRS interval is normal. cp QT interval is normal. Interpreted by me. Reviewed by me. Administered Medications: 13:03 Drug: Albuterol 2.5 mg Route: Inhalation; [facility] 13:40 Follow up: Response: No adverse reaction [facility] 13:03 Drug: AtroVENT Aerosol 0.5 mg Route: Inhalation; [facility] 13:40 Follow up: Response: No adverse reaction jl Disposition: 15:02 Co-signature as Attending Physician, Mayur Roth MD I agree with the assessment and kdr plan of care. Disposition: 03/17/19 13:03 Discharged to Home. Impression: Other chest pain. - Condition is Stable. - Discharge Instructions: Nonspecific Chest Pain, Aspirin and Your Heart. - Prescriptions for Ibuprofen 800 mg Oral Tablet - take 1 tablet by ORAL route every 8 hours As needed take with food; 30 tablet. Albuterol Sulfate 90 mcg/actuation - inhale 1-2 puff by INHALATION route every 4-6 hours; 1 Inhaler. - Medication Reconciliation Form, Thank You Letter, Antibiotic Education, Prescription Opioid Use form. - Follow up: Private Physician; When: 1 - 2 days; Reason: Recheck today's complaints. - Problem is new. - Symptoms have improved. Signatures: Dispatcher [employer] [facility] Mayur Roth MD MD kdr More Francisco, RN RN aa5 Matti Michelle PA PA Tuyet Rice RN RN jl7 Corrections: (The following items were deleted from the chart) 11:53 11:21 Abdomen Limited+US.RAD.BRZ ordered. [facility] 12:35 12:38 Normal except. cp cp 13:41 13:03 03/17/2019 13:03 Discharged to Home. Impression: Other chest pain. Condition is jl7 Stable. Forms are Medication Reconciliation Form, Thank You Letter, Antibiotic Education, Prescription Opioid Use. Follow up: Private Physician; When: 1 - 2 days; Reason: Recheck today's complaints. Problem is new. Symptoms have improved. cp 03/18 01:16 03/17 11:25 Constitutional: Negative for body aches, chills, fever, poor PO intake, cp cp
[2019-03-17 14:01] VITALS: TEMP 98.2
[2019-03-17 14:05] VITALS: BP 111/79; O2SAT 100
--- OUTSIDE RECORDS SUMMARY | 2019-03-22 00:52 | XMS REPORT | Summary of Care ---
:1980 Author Organization [facility] Address [address] [place] [address] Care Team Providers Name Role Phone Laura Mcgarry Carly Primary Care Provider La Briggs MD Unavailable 2, [facility] Lab Unavailable Unavailable Encounter Details Date Type Department Care Team Description 12/02/2018 Patient Secure [facility] Sahra Puri[address] [phone] Allergies No Known Allergiesdocumented as of this encounter (statuses as of 12/09/2018) Medications Medication Sig Dispensed Refills Start Date End Date Status amitriptyline (ELAVIL) TAKE 1 TABLET BY 0 12/11/2015 Active 10 mg tablet MOUTH AT BEDTIME NEEDED FOR SLEEP LYRICA 100 mg capsule TAKE ONE CAPSULE 1 12/19/2015 Active BY MOUTH EVERY 6 HOURS traMADOL (ULTRAM) 50 mg TAKE 1 TABLET BY 0 12/27/2015 Active tablet MOUTH 3 TIMES A DAY amLODIPine 5 mg tablet TAKE 1 TABLET BY 1 08/14/2016 Active MOUTH ONCE A DAY metoprolol succinate XL TAKE 1 TABLET BY 1 08/14/2016 Active 50 mg 24 hr tablet MOUTH ONCE A DAY carbamazepine (TEGRETOL Take 300 mg by 0 Active ORAL) mouth 4 (four) times daily. FREESTYLE LITE STRIPS daily. 4 08/13/2018 Active strip famotidine 40 mg tablet Take 40 mg by 3 07/20/2018 Active mouth daily. HYDROcodone-acetaminoph Take 1 tablet by 28 tablet 0 11/20/2018 Active en 5-325 mg mouth every 6 tabletIndications: (six) hours as Fibroma of right ovary needed (pain). FLUoxetine (PROZAC) 20 Take 20 mg by 0 Active mg capsule mouth daily. FLUoxetine (PROZAC) 40 Take 40 mg by 0 Active mg capsule mouth daily. 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 Pelvic washings benign. 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 documented as of this encounter Last Filed Vital Signs Not on filedocumented in this encounter Plan of Treatment Date Type Specialty Care Team Description 08/25/2019 Office Visit Obstetrics & Gynecology Lizett Chen PA-C [address] [place] [phone] Health Maintenance Due Date Last Done Comments PNEUMOCOCCAL 0-64 YEARS COMBINED 10/09/1985 SERIES (1 of - PPSV23) DTaP,Tdap,and Td Vaccines (1 - 10/09/1998 Tdap) INFLUENZA VACCINE 01/10/2019 PAP SMEAR 10/23/2021 10/23/2018, 09/21/2010, 09/14/2008, Additional history exists documented as of this encounter Results Not on filedocumented in this encounter Insurance Payer Benefit Plan / Subscriber ID Effective Phone Address Type Group [facility] xxxxxxxxx 2014-[address]se [address] Medicaid HEALTH CHOICE - HEALTH CHOICE nt [id number] MANAGED MEDICAID [place], [place] MEDICAID [phone] documented as of this encounter
--- OUTSIDE RECORDS SUMMARY | 2019-03-22 00:52 | XMS REPORT | Summary of Care ---
:1980 Author Organization [facility] Address [address] [place] [address] Care Team Providers Name Role Phone Laura Mcgarry Carly Primary Care Provider La Briggs MD Unavailable 2, [facility] Lab Unavailable Unavailable Reason for Visit Reason Comments Talk To Nurse Encounter Details Date Type Department Care Team Description 12/07/2018 Telephone [facility] Women's Sterling Garcia, Talk To Nurse Healthcare- Charleen MART [address] [place] [address], [phone] [place] [phone] Allergies No Known Allergiesdocumented as of this encounter (statuses as of 12/07/2018) Medications Medication Sig Dispensed Refills Start Date [...] as of this encounter (statuses as of 12/07/2018) Active Problems Problem Noted Date Abnormal uterine bleeding 10/23/2018 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 Pelvic washings benign. 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 10/23/2018 Morbid obesity with body mass index of 40.0-49.9 10/02/2018 documented as of this encounter (statuses as of 12/07/2018) Social History Tobacco Use Types Packs/Day Years [...] Visit Obstetrics & Gynecology Lizett Chen PA-C [address] [place] [phone] Health Maintenance Due Date Last Done Comments PNEUMOCOCCAL 0-64 YEARS COMBINED 10/09/1985 SERIES (1 of 1 - PPSV23) DTaP,Tdap,and Td Vaccines (1 - 10/09/1998 Tdap) INFLUENZA VACCINE 01/10/2019 PAP SMEAR 10/23/2021 10/23/2018, 09/21/2010, 09/14/2008, Additional history exists documented as of this encounter Results Not on filedocumented in this encounter Insurance Payer Benefit Plan / Subscriber ID Effective Phone Address Type Group Dates [employer] xxxxxxxxx 2014-Karine JONES Medicaid HEALTH CHOICE - [place] nt [id number] MANAGED MEDICAID [place], [place] MEDICAID [phone] documented as of this encounter
--- OUTSIDE RECORDS SUMMARY | 2019-03-22 00:52 | XMS REPORT ---
:1980 [facility] Address [address] [place] [address] Care Team Providers Name Role Phone Unavailable Unavailable Unavailable Problems This patient has no known problems. Allergies, Adverse Reactions, Alerts This patient has no known allergies or adverse reactions. Medications This patient has no known medications.
--- OUTSIDE RECORDS SUMMARY | 2019-03-22 00:52 | XMS REPORT | Summary of Care ---
:1980 Author Organization [facility] - [facility] Address [address] [place] [id number] Care Team Providers Name Role Phone Laura Mcgarry Carly Primary Care Provider La Briggs MD Unavailable 2, Adc Lab Unavailable Unavailable Encounter Details Date Type Department Care Team Description 12/02/2018 Patient Secure [facility] Sahra Puri[address] [phone] Allergies No Known Allergiesdocumented as of this encounter (statuses as of 12/08/2018) Medications Medication Sig Dispensed Refills Start Date [...] as of this encounter (statuses as of 12/08/2018) Active Problems Problem Noted Date Abnormal uterine bleeding 10/23/2018 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 Pelvic washings benign. 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 10/23/2018 Morbid obesity with body mass index of 40.0-49.9 10/02/2018 documented as of this encounter (statuses as of 12/08/2018) Social History Tobacco Use Types Packs/Day Years [...] Visit Obstetrics & Gynecology Lizett Chen PA-C [address] [place] [phone] Health Maintenance Due Date Last Done Comments PNEUMOCOCCAL 0-64 YEARS COMBINED 10/09/1985 SERIES (1 of - PPSV23) DTaP,Tdap,and Td Vaccines (1 - 10/09/1998 Tdap) INFLUENZA VACCINE 01/10/2019 PAP SMEAR 10/23/2021 10/23/2018, 09/21/2010, 09/14/2008, Additional history exists documented as of this encounter Results Not on filedocumented in this encounter Insurance Payer Benefit Plan / Subscriber ID Effective Phone Address Type Group [facility] xxxxxxxxx 2014-Prese [address] Medicaid HEALTH CHOICE - HEALTH CHOICE nt [id number] MANAGED MEDICAID [place], [place] [phone] documented as of this encounter
--- OUTSIDE RECORDS SUMMARY | 2019-03-22 00:53 | XMS REPORT | Summary of Care ---
:1980 Author Organization [facility] Address [address] [place] [id number] Care Team Providers Name Role Phone Laura Mcgarry Carly Primary Care Provider La Briggs MD Unavailable 2, [facility] Unavailable Unavailable Reason for Visit Reason Comments POST-OP Encounter Details Date Type Department Care Team Description 12/18/2018 Office Visit [facility] Diclemente Dexter tumor of [facility]- Charleen Katz MD ovary (Primary Dx) [address], [address] [place], [place] [phone] Allergies No Known Allergiesdocumented as of this encounter (statuses as of 12/18/2018) Medications Medication Sig Dispensed Refills Start Date End Date Status amitriptyline TAKE 1 TABLET 0 12/11/2015 Active (ELAVIL) 10 mg BY MOUTH AT tablet BEDTIME NEEDED FOR SLEEP LYRICA 100 mg TAKE ONE 1 12/19/2015 Active capsule CAPSULE BY MOUTH EVERY 6 HOURS traMADOL (ULTRAM) 50 TAKE 1 TABLET 0 12/27/2015 Active mg tablet BY MOUTH 3 TIMES A DAY amLODIPine 5 mg TAKE 1 TABLET 1 08/14/2016 Active tablet BY MOUTH ONCE A DAY metoprolol succinate TAKE 1 TABLET 1 08/14/2016 Active XL 50 mg 24 hr BY MOUTH ONCE tablet A DAY carbamazepine Take 300 mg 0 Active (TEGRETOL ORAL) by mouth 4 (four) times daily. FREESTYLE LITE daily. 4 08/13/2018 Active STRIPS strip famotidine 40 mg Take 40 mg by 3 07/20/2018 Active tablet mouth daily. FLUoxetine (PROZAC) Take 20 mg by 0 Active 20 mg capsule mouth daily. FLUoxetine (PROZAC) Take 40 mg by 0 Active 40 mg capsule mouth daily. HYDROcodone-acetamin Take 1 tablet 28 tablet 0 11/20/2018 12/18/2018 Discontinued ophen 5-325 mg by mouth tabletIndications: every 6 (six) Fibroma of right hours as ovary needed (pain). 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 Benign Dexter tumor. 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 Pelvic washings benign. 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 10/23/2018 Morbid obesity with body mass index of 40.0-49.9 10/02/2018 documented as of this encounter (statuses as of 12/18/2018) Social History Tobacco Use Types Packs/Day Years [...] of this encounter Last Filed Vital Signs Vital Sign Reading Time Taken Comments Blood Pressure 138/86 12/18/2018 4:04 PM CDT Pulse 94 12/18/2018 4:04 PM CDT Temperature 36.8 C (98.2 F) 12/18/2018 4:04 PM CDT Respiratory Rate 20 12/18/2018 4:04 PM CDT Oxygen Saturation - - Inhaled Oxygen Concentration - - Weight 100.2 kg (221 lb) 12/18/2018 4:04 PM CDT Height 157.5 cm (5' 2") 12/18/2018 4:04 PM CDT Body Mass Index 40.42 12/18/2018 4:04 PM CDT documented in this encounter Progress Notes Sterling Garcia MD - 12/18/2018 3:45 PM CDT Chief complaint: Chief Complaint Patient presents with POST-OP HPI: The patient is a 38 yo HF LMP 12/06/18 who comes in for her postoperative visit. She wasseen initially on 10/23/18 for evaluation of an abnormal ultrasound. A pelvic US on 10/13/18 revealed an elongated uterus measuring 10.5 x 3.6 x 6.4 cm. No definite focal masses were seen in the uterus. The endometrium measured 6 mm. The left ovary was normal and the right ovary measured 2.4 x 2.9 x 3 cmand appeared to have a somewhat hypoechoic appearance. A pelvic MRI on 10/21/18 revealed a 3.3 cm right ovarian solid tumor visually c/w a fibroma. She is s/p a prior partial salpingectomy at the time of her last section and was initially wondering whether or not her tubes were patent. She wasscheduled for an HSG but it was not able to be done due to difficulty visualizing the cervix. Her initial exam was notable for an anteriorly deviated cervix and a pap smear was normal. We discussed that she possible had a right ovarian fibroma, which are sex-cord stromal tumors and are typically benign. Ten percent of the time they can be associated with Gadsden syndrome (ascites and a right pleural effusion). Therefore removal was recommended. We discussed a number of things including whether or not she wants any remaining tubal tissue to be removed at the time of surgery as well as undergoing a dilation of the cervix, hysteroscopy with curettage (she had some abnormal bleeding in September of this year). She initially did not want any additional procedures done but after giving it some more consideration, she wanted any remaining fallopian tube tissue removed in addition to the right ovary. She underwent an uncomplicated laparoscopic right salpingo-oopherectomy and left salpingectomy on 11/24/18. Intraperitoneal examination revealed dense omental adhesions to the anterior abdominal wall in the periumbilical area and the LLQ. These adhesions were released to allow visualization of the pelvis. The uterus was densely adherent to anterior abdominal wall. The fallopian tubes were s/p a prior partial salpingectomy and the left ovary was visually normal with a small 2 cm cyst noted. The right ovary was about 3.5 cm in size, visually normal with no surface abnormalities noted. The remainder of the pelvisand upper abdomen were normal. The right ureter was visualized and well below the surgical field. Final histology of her fallopian tubes was benign and histology of the right ovary revealed a benign Dexter tumor. She comes in today , has no surgical complaints and reports having a period about two weeks ago, lasting several days and relatively light and had some spotting yesterday. Histories OB History Para Term AB Living 4 3 3 0 1 3 SAB TAB Ectopic Multiple Live Births 1 0 0 0 3 # Outcome Date GA Lbr Rafi/2nd Weight Sex Delivery Anes PTL Lv 4 SAB 3 Term 2 Term 1 Term Obstetric Comments All three C-Sections Pelvis too small Largest Weight 7lb 11oz Past Medical History: Diagnosis Date Abnormal uterine bleeding 10/23/2018 Anemia Anxiety Asthma still struggles with it Depression Diabetes mellitus Heart murmur as a child Hypertension Liver disease abnormal LFTs Urinary incontinence stress / wears pads / worse the past year Family History Problem Relation Age of Onset Diabetes Father Other - see comments Father Hep C Arthritis NoFHx Asthma NoFHx defects NoFHx Breast Cancer NoFHx Colon Cancer NoFHx Ovarian Cancer NoFHx Uterine Cancer NoFHx Cancer NoFHx Depression NoFHx Genetic NoFHx Heart NoFHx High cholesterol NoFHx Hypertension NoFHx Mental retardation NoFHx Neurological NoFHx Osteoporosis NoFHx Psychiatry NoFHx Family Status Relation Name Status Mo Alive Fa Unknown NoFHx (Not Specified) Past Surgical History: Procedure Laterality Date APPENDECTOMY 2014 SECTION 1998/2003/2007 CHOLECYSTECTOMY 2008 DILATION AND CURETTAGE (SHX) 2002 LAPAROSCOPIC OOPHORECTOMY Right 11/24/2018 Surgeon: Sterling Garcia MD; [place] [facility] [place] Social History Socioeconomic History Marital status: Spouse name: [place] Number of children: 3 Years of education: 12+ Highest education level: Not on file Occupational History 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 Social Needs Financial resource strain: Not on file Food insecurity: Worry: Not on file Inability: Not on file Transportation needs: Medical: Not on file Non-medical: Not on file Tobacco Use Smoking status: Current Every Day Smoker Packs/day: 1.00 Years: 20.00 Pack years: 20.00 Types: Cigarettes Smokeless tobacco: Never Used Substance and Sexual Activity Alcohol use: No Alcohol/week: 0.0 oz Drug use: No Sexual activity: Yes Partners: Male control/protection: Surgical Lifestyle Physical activity: Days per week: Not on file Minutes per session: Not on file Stress: Not on file Relationships Social connections: Talks on phone: Not on file Gets together: Not on file Attends yazidism service: Not on file Active member of club or organization: Not on file Attends meetings of clubs or organizations: Not on file Relationship status: Not on file Intimate partner violence: Fear of current or ex partner: Not on file Emotionally abused: Not on file Physically abused: Not on file Forced sexual activity: Not on file Other Topics Concern Service Not Asked Blood Transfusions Not Asked Caffeine Concern Not Asked Occupational Exposure Not Asked Hobby Hazards Not Asked Sleep Concern Not Asked Stress Concern Not Asked Weight Concern Not Asked Special Diet Not Asked Back Care Not Asked Exercise Not Asked Bike Helmet Not Asked Seat Belt Yes Self-Exams Not Asked Social History Narrative Denies domestic or physical violence within the home Protestant Preference: Zoroastrian Social History Substance and Sexual Activity Sexual Activity Yes Partners: Male control/protection: Surgical Labs I have reviewed the patient's labs. Radiology No new radiology. Allergies Viviana has No Known Allergies. Medications Viviana has a current medication list which includes the following prescription( s): fluoxetine, fluoxetine, carbamazepine, famotidine, freestyle lite strips, amlodipine, metoprolol succinate xl, amitriptyline, lyrica, and tramadol. Review of Systems Constitutional: Negative. Respiratory: Negative. Cardiovascular: Negative. Gastrointestinal: Negative. Genitourinary: Positive for menstrual problem. Neurological: Negative. BP 138/86 (BP Location: Right arm, Patient Position: Sitting) | Pulse 94 | Temp 36.8 C (98.2 F) (Oral) | Resp 20 | Ht 5' 2" (1.575 m) | Wt 221 lb ( 100.2 kg) | LMP 12/04/2018 | BMI 40.42 kg/m Pregravid BMI: Could not be calculated Physical Exam Vitals reviewed. Constitutional: She is oriented to person, place, and time. She appears well- developed and well-nourished. Cardiovascular: Regular rate and rhythm. Pulmonary/Chest: Normal inspiratory effort. Abdominal: Abdomen is soft. The patient has 4 laparoscopic incisions that are well healed and without evidence of infection. Theinfraumbilical incision shows some superficial separation of the skin but is healing well. Neuro/Psychiatric: She has a normal mood and affect. She is oriented to person, place, and time. Skin: Skin normal. 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 I asked her to monitor her menstrual bleeding and if it continues to be a problem, we discussed a several month of either Provera or Ortho-Micronor. Plan: She will call if the office if this is the case. Otherwise RTC in 12 months. Sterling Garcia MD 12/18/2018 4:24 PM documented in this encounter Plan of Treatment Date Type Specialty Care Team Description 08/25/2019 Office Visit Obstetrics & Gynecology Lizett Chen PA-C [address] [place] [phone] 12/20/2019 Office Visit Obstetrics & Gynecology Lizett Chen PA-C [address] [place] [phone] Health Maintenance Due Date Last Done Comments PNEUMOCOCCAL 0-64 YEARS COMBINED 10/09/1985 SERIES (1 of - PPSV23) DTaP,Tdap,and Td Vaccines (1 - 10/09/1998 Tdap) INFLUENZA VACCINE 01/10/2019 PAP SMEAR 10/23/2021 10/23/2018, 09/21/2010, 09/14/2008, Additional history exists documented as of this encounter Results Not on filedocumented in this encounter Visit Diagnoses Diagnosis Dexter tumor of right ovary - Primary documented in this encounter Insurance Payer Benefit Plan Subscriber ID Effective Dates Phone Address Type / Group BC OF [facility] [id number] 2018-Prese [phone] [address] PPO/POS [place] - OUT OF nt [id number] [place] [address] documented as of this encounter
--- OUTSIDE RECORDS SUMMARY | 2019-03-22 00:53 | XMS REPORT | Encounter Summary ---
:1980 Author Care Team Providers Name Role Phone Laura Mcgarry DO Primary Care Provider [phone] Reason for Visit New Patient Instructions 1. Morbid obesity when you are overweight: care instructions 2. 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 Type 2 diabetes mellitus without complication 4. Essential hypertension 5. Hyperlipidemia 6. Obstructive sleep apnea syndrome sleep apnea: care instructions 7. Gastro-esophageal reflux disease with esophagitis Discussion Note: None recorded. Plan of Care Reminders Provider Appointments None recorded. Lab TSH, Serum or [place] Plasma 02/11/2019 [facility] (Labs) (Xray) HbA1C [place] (Hemoglobin a1C), Blood 02/11/2019 [facility] (Labs) (Xray) Lipid Panel, [place] Serum 02/11/2019 [facility] (Labs) (Xray) CBC W/ Auto [place] Diff 02/11/2019 [facility] (Labs) (Xray) CMP, Serum or [place] Plasma 02/11/2019 [facility] (Labs) (Xray) Prealbumin, [place] Serum 02/11/2019 [facility] (Labs) (Xray) Referral Tool Design Draftsperson/dietitian 02/11/2019 Referral Psychology Referral 02/11/2019 Procedures None recorded. Surgeries None recorded. Imaging None recorded. Medications Name Start Date Lyrica 100 mg capsule Take 1 capsule 4 times a day by oral route. metoprolol succinate ER 50 mg tablet,extended release 24 hr Take 1 tablet every day by oral route. Prozac 20 mg capsule Take 1 capsule every day by oral route. Prozac 40 mg capsule Take 1 capsule every day by oral route. tizanidine 2 mg capsule Take 1 capsule every day by oral route. Trileptal 300 mg tablet Take 1 tablet 4 times a day by oral route. Medications Administered None recorded. Vitals Height Weight BMI Blood Pressure 5 ft 2 in 220.5 lbs 40.3 kg/m2 134/66 mm[Hg] Lab Results None recorded. Allergies Code Code System Name Reaction Severity Status Onset NKDA Problems Name Status Onset Date Source Diabetes Mellitus Active 02/11/2019 Bipolar Disorder Active 02/11/2019 Anxiety Active 02/11/2019 Depressive Disorder Active 02/11/2019 Procedures Date Name Performed by Section Information not available Laparoscopic Appendectomy Information not available Laparoscopic Cholecystectomy Information not available Vaccine List None recorded. Social History Tobacco Smoking Status Heavy Tobacco Smoker (1/2 PPD) Past Encounters 02/11/2019 Morbid Obesity; Body Mass Index 40+ - Severely Obese; Type 2 Diabetes Mellitus without Complication; Essential Hypertension; Hyperlipidemia; Obstructive Sleep Apnea Syndrome; Gastro-esophageal Reflux Disease with Esophagitis Davian Carroll MD: [address] [place] [address] [address], [place] [address] , Ph. [phone] History of Present Illness Note: <p>cc: morbid obesity</p><p>HPI: 38 yo female with failure conservative weightloss</p><p>62 inches 220 lbs, iw 125, xs 95, bmi 40</p><p>comorbidities: dm,htn, gerd, hyperlipidemia, abraham, con</p><p>pmh: same</p><p>psh: csec, d&C, loraine , appy, rt ovary</p><p>nkda</p><p>ros ow neg</p>& lt;p>
</p><p>Bariatrics

Visit 1

Discussed with pt the NIH criteria for weight loss surgery. Reviewed morbid obesity and comorbid conditions. Discussed balance of calories, measurement of intake and output of calories including the use of resting energyexpenditure. Provided “Considering Weight Loss Surgery, second edition” for patient toread and discussed open book test. Reviewed insurance requirements and workup requirements. Discussed 6 month educational process. Handout given for changes in diet to include and increase in fruits and vegetables, avoiding any soda or fast food, and regular exercise regimen.&lt ;br>
Plan 6consecutive monthly visits for multidisciplinary conservative weight loss. Obtain bariatric labs set, and resting energy expenditure (REE). Obtain psychologic clearance and mosaic layer consultation. Patient given open book test and will review next visit. Plan educational session for reading labels, evaluating foods.

< br></p> Review of Systems General Surgery ROS Reported By: Patient Constitutional: Constitutional: no fever, no night sweats, no significant weight gain, no significant weight loss, no exercise intolerance Eyes: Eyes: no dry eyes, no irritation, no vision change ENMT: Ears: no difficulty hearing, no ear pain. Nose: no frequent nosebleeds, no nose/sinus problems. Mouth/Throat: no sore throat, no bleeding gums, no snoring, no dry mouth, no mouth ulcers, no oral abnormalities, no teeth problems, No Post Nasal Dripping, Constantly clearing the throat, hiccups, itching throat, (normal) weak voice: constant Respiratory: Respiratory: no cough, no wheezing, no shortness of breath, no coughing up blood Cardiovascular: Cardiovascular: no chest pain, no arm pain on exertion, no shortness of breath when walking, no shortness of breath when lying down, no palpitations, no known heart murmur Gastrointestinal: Gastrointestinal: no abdominal pain, no vomiting, normal appetite, no diarrhea, not vomiting blood Genitourinary: Genitourinary: no difficulty urinating, no hematuria, no increased frequency, urinary loss of control Musculoskeletal: Musculoskeletal: no muscle aches, no muscle weakness, no arthralgias/joint pain, no back pain, no swelling in the extremities Integumentary: Skin: no abnormal mole, no jaundice, no rashes Neurologic: Neurologic: no loss of consciousness, no weakness, no numbness, no seizures, no dizziness, no headaches Physical Exam Pre-Op Exam Reported By: Patient Constitutional: General Appearance: healthy-appearing, well-nourished, well-developed Psychiatric: Orientation: to time, to place, to person Skin: Inspection and palpation: no rash, no lesions, no induration Eyes: Pupils: PERRLA. EOM: EOMI ENMT: Lips, Teeth, and Gums: normal dentition Neck: Neck: supple, FROM Lungs: Auscultation: breath sounds normal, CTA except as noted, no wheezing, no rales/crackles, no rhonchi Cardiovascular: Heart Auscultation: RRR, no murmurs, no rubs, no gallops. Neck vessels: no carotid bruits. Pulses including femoral / pedal: normal throughout Abdomen: Bowel Sounds: normal. Inspection and Palpation: soft, non-distended, no tenderness (no guarding, no rebound), no masses, no CVA tenderness. Liver: non-tender, no hepatomegaly. Spleen: non-tender, no splenomegaly Back: Thoracolumbar Appearance: normal curvature Musculoskeletal:: Joints, Bones, and Muscles: normal movement of all extremities, no malalignment, no tenderness. Extremities: no cyanosis, no edema, no varicosities Neurologic: Gait and Station: normal gait, normal station. Cranial Nerves: grossly intact. Sensation: grossly intact. Reflexes: DTRs 2+ bilaterally throughout
--- OUTSIDE RECORDS SUMMARY | 2019-03-22 00:53 | XMS REPORT | Summary of Care ---
:1980 Author Organization [facility] - Health Address [address] [place] [address] Care Team Providers Name Role Phone Laura Mcgarry Carly Primary Care Provider La Briggs MD Unavailable 2, [facility] Unavailable Unavailable Encounter Details Date Type Department Care Team Description 01/03/2019 Orders Only [facility] Doctor Unassigned, No [address] [facility] [place] [address] [address] [place] [address] Allergies No Known Allergiesdocumented as of this encounter (statuses as of 01/03/2019) Medications Medication Sig Dispensed Refills Start Date [...] mg by 3 07/20/2018 Active mouth daily. FLUoxetine (PROZAC) 20 Take 20 mg by 0 Active mg capsule mouth daily. FLUoxetine (PROZAC) 40 Take 40 mg by 0 Active mg capsule mouth daily. documented as of this encounter (statuses as of 01/03/2019) Active Problems Problem Noted Date Dexter tumor [...] as of this encounter (statuses as of 01/03/2019) Social History Tobacco Use Types Packs/Day Years [...] Visit Obstetrics & Gynecology Lizett Chen PA-C [address] [phone] 12/20/2019 Office Visit Obstetrics & Gynecology Lizett Chen PA-C [address] [phone] Health Maintenance Due Date Last Done Comments PNEUMOCOCCAL 0-64 YEARS COMBINED 10/09/1985 SERIES (1 of 1 - PPSV23) DTaP,Tdap,and Td Vaccines (1 - 10/09/1998 Tdap) INFLUENZA VACCINE (#1) 2019 PAP SMEAR 10/23/2021 10/23/2018, 09/21/2010, 09/14/2008, Additional history exists documented as of this encounter Procedures Procedure Name Priority Date/Time Associated Diagnosis Comments DISABILITY/FMLA Routine 01/03/2019 12:01 AM CDT documented in this encounter Results Not on filedocumented in this encounter Insurance Payer Benefit Plan Subscriber ID Effective Dates Phone Address Type / Group [place] [employer] [place] [id number] 2018-Karine [phone] [address] PPO/POS [place] - OUT OF nt 7 [id number] [place] [address] documented as of this encounter
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
--- OUTSIDE RECORDS SUMMARY | 2019-03-22 00:53 | XMS REPORT | Summary of Care ---
:1980 Author Organization [facility] Address [address] [place] [id number] Care Team Providers Name Role Phone Laura Mcgarry Carly Primary Care Provider La Briggs MD Unavailable 2, Ad[facility] Lab Unavailable Unavailable Encounter Details Date Type Department Care Team Description 12/02/2018 Patient Secure [facility] Sahra Puri[address] [phone] Allergies No Known Allergiesdocumented as of this encounter (statuses as of 12/10/2018) Medications Medication Sig Dispensed Refills Start Date [...] as of this encounter (statuses as of 12/10/2018) Active Problems Problem Noted Date Abnormal uterine bleeding 10/23/2018 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 Pelvic washings benign. 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 10/23/2018 Morbid obesity with body mass index of 40.0-49.9 10/02/2018 documented as of this encounter (statuses as of 12/10/2018) Social History Tobacco Use Types Packs/Day Years [...] Visit Obstetrics & Gynecology Lizett Chen PA-C [address] [place] [phone] Health Maintenance Due Date Last Done Comments PNEUMOCOCCAL 0-64 YEARS COMBINED 10/09/1985 SERIES (1 of - PPSV23) DTaP,Tdap,and Td Vaccines (1 - 10/09/1998 Tdap) INFLUENZA VACCINE 01/10/2019 PAP SMEAR 10/23/2021 10/23/2018, 09/21/2010, 09/14/2008, Additional history exists documented as of this encounter Results Not on filedocumented in this encounter Insurance Payer Benefit Plan / Subscriber ID Effective Phone Address Type Group [facility] xxxxxxxxx 2014-[address] Medicaid HEALTH CHOICE - [place] nt [id number] MANAGED MEDICAID [place], [place] MEDICAID [phone] documented as of this encounter
--- OUTSIDE RECORDS SUMMARY | 2019-03-22 00:53 | XMS REPORT ---
:1980 Author Organization eClinicalWorks Care Team Providers Name Role Phone Mcgarry, Na Provider Role Unavailable Allergies No Known Allergies Problems Problem Type Condition Code Onset Dates Condition Status Problem Neuropathy G62.9 Active Problem Anxiety F41.9 Active Problem Screening for cholesterol level Z13.220 Active Problem HTN (hypertension) I10 Active Problem Obesity, Class III, BMI 40-49.9 E66.01 Active (morbid obesity) Problem Abnormal AST and ALT R74.0 Active Problem Depression F32.9 Active Problem Gastroesophageal reflux disease K21.0 Active with esophagitis Problem Cigarette nicotine dependence F17.210 Active without complication Problem Fatty liver K76.0 Active Problem Gastroesophageal reflux disease, K21.9 Active esophagitis presence not specified Problem Urinary tract infection, site not N39.0 Active specified Problem Mixed hyperlipidemia E78.2 Active Problem Bipolar 1 disorder, depressed F31.9 Active Problem Weight gain R63.5 Active Problem Peripheral neuropathy G62.9 Active Problem Urticaria L50.9 Active Problem Allergic rhinitis, seasonal J30.2 Active Problem Acute right-sided low back pain M54.5 Active without sciatica Problem Hematuria, unspecified R31.9 Active Problem Nicotine dependence F17.200 Active Problem Complex regional pain syndrome I of G90.519 Active unspecified upper limb Problem 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
--- OUTSIDE RECORDS SUMMARY | 2019-03-22 00:53 | XMS REPORT | Summary of Care ---
:1980 Author Organization [facility] - [facility] Address [address] [place] [id number] Care Team Providers Name Role Phone Laura Mcgarry Carly Primary Care Provider La Briggs MD Unavailable 2, Adc Lab Unavailable Unavailable Encounter Details Date Type Department Care Team Description 12/02/2018 Patient Secure [facility] Sahra Puri[address] [phone] Allergies No Known Allergiesdocumented as of this encounter (statuses as of 12/15/2018) Medications Medication Sig Dispensed Refills Start Date [...] as of this encounter (statuses as of 12/15/2018) Active Problems Problem Noted Date Abnormal uterine bleeding 10/23/2018 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 Pelvic washings benign. 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 10/23/2018 Morbid obesity with body mass index of 40.0-49.9 10/02/2018 documented as of this encounter (statuses as of 12/15/2018) Social History Tobacco Use Types Packs/Day Years [...] Visit Obstetrics & Gynecology Lizett Chen PA-C [address] [place] [phone] Health Maintenance Due Date Last Done Comments PNEUMOCOCCAL 0-64 YEARS COMBINED 10/09/1985 SERIES (1 of - PPSV23) DTaP,Tdap,and Td Vaccines (1 - 10/09/1998 Tdap) INFLUENZA VACCINE 01/10/2019 PAP SMEAR 10/23/2021 10/23/2018, 09/21/2010, 09/14/2008, Additional history exists documented as of this encounter Results Not on filedocumented in this encounter Insurance Payer Benefit Plan / Subscriber ID Effective Phone Address Type Group [facility] xxxxxxxxx 2014-[address]se [address] Medicaid HEALTH CHOICE - HEALTH CHOICE nt [id number] MANAGED MEDICAID [place], [place] MEDICAID [phone] documented as of this encounter
--- OUTSIDE RECORDS SUMMARY | 2019-03-22 00:53 | XMS REPORT | Summary of Care ---
:1980 Author Organization [facility] - [facility] Address [address] [place] [address] Care Team Providers Name Role Phone Laura Mcgarry Carly Primary Care Provider La Briggs MD Unavailable 2, Adc Lab Unavailable Unavailable Encounter Details Date Type Department Care Team Description 12/02/2018 Patient Secure [facility] Sahra Puri[address] [phone] Allergies No Known Allergiesdocumented as of this encounter (statuses as of 12/17/2018) Medications Medication Sig Dispensed Refills Start Date [...] as of this encounter (statuses as of 12/17/2018) Active Problems Problem Noted Date Abnormal uterine bleeding 10/23/2018 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 Pelvic washings benign. 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 10/23/2018 Morbid obesity with body mass index of 40.0-49.9 10/02/2018 documented as of this encounter (statuses as of 12/17/2018) Social History Tobacco Use Types Packs/Day Years [...] Treatment Date Type Specialty Care Team Description 12/18/2018 Office Visit Obstetrics & Gynecology Sterling Garcia MD [address] [place] [address] 08/25/2019 Office Visit Obstetrics & Gynecology Lizett Chen PA-C [address] [place] [phone] Health Maintenance Due Date Last Done Comments PNEUMOCOCCAL 0-64 YEARS COMBINED 10/09/1985 SERIES (1 of - PPSV23) DTaP,Tdap,and Td Vaccines (1 - 10/09/1998 Tdap) INFLUENZA VACCINE 01/10/2019 PAP SMEAR 10/23/2021 10/23/2018, 09/21/2010, 09/14/2008, Additional history exists documented as of this encounter Results Not on filedocumented in this encounter Insurance Payer Benefit Plan / Subscriber ID Effective Phone Address Type Group Dates [facility] xxxxxxxxx [facility]-Karine JONES Medicaid HEALTH [employer] nt [id number] MANAGED MEDICAID [place], [place] MEDICAID [phone] documented as of this encounter
--- OUTSIDE RECORDS SUMMARY | 2019-03-22 00:54 | XMS REPORT ---
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
== END 2019-03-17 13:41 | disposition home or self-care (01) ==
LOC: ER 10:43
DX: R07.89 Other chest pain (principal); I10 Essential (primary) hypertension; F17.210 Nicotine dependence, cigarettes, uncomplicated
CPT/HCPCS: 36415; 71045; 80048; 80076; 83690; 83735; 83880; 84484; 85025; 85610; 93005; 99285

== ENCOUNTER 2019-10-07 07:28 | Emergency (ER) | payer BC, OTHER ==
[2019-10-07] MEDS ORDERED: ONDANSETRON 4 MG/2 ML VIAL ONE (08:14)
[2019-10-07] MEDS ORDERED: MORPHINE 4 MG/ML SYR ONE (08:14)
[2019-10-07 08:36] LABS: Absolute Lymphocytes (CBC) 2.7 K/uL (0.7-4.9); Basophils % 0.3 % (0-1.3); Hematocrit 46.7 % (36.0-45.0); Lymphocytes % 32.5 % (15.3-44.8); MPV 8.1 fL (7.6-11.3); RBC Red Blood Cell Count 5.43 M/uL (3.86-4.86)
[2019-10-07 08:53] LABS: ALT/SGPT 24 U/L (12-78); AST/SGOT 14 U/L (15-37); Albumin 3.5 g/dL (3.4-5.0); Alkaline Phosphatase 188 U/L (45-117); BUN Blood Urea Nitrogen 11 mg/dL (7-18); Bicarbonate 26 mmol/L (21-32); Bilirubin Direct < 0.1 mg/dL (0-0.2); Bilirubin Total 0.2 mg/dL (0.2-1.0); Glucose Level 107 mg/dL (74-106); Lipase 127 U/L (73-393); Potassium 4.1 mmol/L (3.5-5.1); Protein, Total 7.8 g/dL (6.4-8.2); Sodium Level 137 mmol/L (136-145)
[2019-10-07 09:19] LABS: Urine Blood NEGATIVE (NEG); Urine Glucose NEGATIVE (NEG); Urine Protein TRACE (NEG); Urine Specific Gravity 1.025 (1.005-1.030)
--- NOTE | 2019-10-07 09:27 | RAD REPORT ---
EXAM DESCRIPTION: US - Abdomen Exam Limited - 10/07/2019 9:04 am CLINICAL HISTORY: Abdominal pain. COMPARISON: 2019 FINDINGS: Cholecystectomy. Common bile duct measures 6 millimeters which is within normal limits IMPRESSION: Cholecystectomy Unremarkable common bile duct
[2019-10-07 09:58] LABS: Urine Bacteria <20 /HPF (<20); Urine RBC <5 /HPF (NONE SEEN)
[2019-10-07 09:59] LABS: Urine Culture Reflex Order NOT NEEDED
--- NOTE | 2019-10-07 10:08 | RAD REPORT ---
EXAM DESCRIPTION: CT - Abdomen Pelvis W Contrast - 10/07/2019 9:43 am CLINICAL HISTORY: Abdominal pain COMPARISON: 2019 TECHNIQUE: Computed axial tomography of the abdomen pelvis was obtained. 100 cc Isovue-300 was admin istered intravenously. Oral contrast was not requested which limits evaluation of bowel. All CT scans are performed using dose optimization technique as appropriate and may include automated exposure control or mA/KV adjustment according to patient size. FINDINGS: The liver, spleen, pancreas, adrenal and kidneys appear unremarkable. There is no evidence of diverticulitis. Small umbilical hernia. Small ventral hernia just below the umbilicus 4.5 centimeter complex left ovarian cyst without significant free-fluid IMPRESSION: A 4.5 centimeter complex left ovarian cyst without significant free fluid likely benign. A followup ultrasound in a couple months recommended for re-evaluation
[2019-10-07] MEDS ORDERED: LIDOCAINE VISCOUS 2% SOLN 15 ML UDC ONE (10:27)
[2019-10-07] MEDS ORDERED: MAGNE/ALUM HYDROXD 30 ML UCUP ONE (10:27)
[2019-10-07 10:49] VITALS: TEMP 97.8
[2019-10-07 10:52] VITALS: O2SAT 99
[2019-10-07 10:53] VITALS: BP 134/87
--- NOTE | 2019-10-11 15:42 | ER ---
Nurse's Notes [facility] Name: Viviana Patricia Age: 38 yrs Sex: Female : 1980 Arrival Date: 10/07/2019 Time: 07:32 Bed 6 Private MD: Diagnosis: Right upper quadrant abdominal tenderness Presentation: 10/06 07:49 Chief complaint: Intermittent right sided abdominal pain and nausea x 2 weeks, worse hb over last 2 days. Denies fever. Coronavirus screen: Proceed with normal triage. Ebola Screen: No symptoms or risks identified at this time. Initial Sepsis Screen: Does the patient meet any 2 criteria? No. Patient's initial sepsis screen is negative. Does the patient have a suspected source of infection? No. Patient's initial sepsis screen is negative. Risk Assessment: Do you want to hurt yourself or someone else? Patient reports no desire to harm self or others. Onset of symptoms was September 23, 2019. 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 - Social history:: Smoking status: Patient reports the use of cigarette tobacco products, smokes one-half pack cigarettes per day. Screenin:52 Abuse screen: Denies threats or abuse. Nutritional screening: No deficits noted. em Tuberculosis screening: No symptoms or risk factors identified. Fall Risk None identified. Assessment: 08:10 General: Appears in no apparent distress. uncomfortable, Behavior is calm, cooperative, em appropriate for age, Denies fever. Pain: Complains of pain in right upper quadrant and right lower quadrant Pain currently is 8 out of 10 on a pain scale. Pain began 2-3 days ago. Neuro: Level of Consciousness is awake, alert, obeys commands, Oriented to person, place, time, situation, Appropriate for age. Cardiovascular: Capillary refill < 3 seconds Patient's skin is warm and dry. Respiratory: Airway is patent Respiratory effort is even, unlabored, Respiratory pattern is regular, symmetrical. GI: Abdomen is flat, Bowel sounds present X 4 quads. Abd is soft X 4 quads Abdomen is tender to palpation in right upper quadrant and right lower quadrant Reports diarrhea, nausea, Patient currently denies vomiting. : Urine is clear, Denies burning with urination. Derm: Skin is intact, is healthy with good turgor, Skin is pink, warm \T\ dry. Musculoskeletal: Capillary refill < 3 seconds, Range of motion: intact in all extremities. 09:00 Reassessment: Patient appears in no apparent distress at this time. Patient and/or em family updated on plan of care and expected duration. Pain level reassessed. Patient is alert, oriented x 3, equal unlabored respirations, skin warm/dry/pink. Patient states feeling better. Patient states symptoms have improved. 09:58 Reassessment: Patient appears in no apparent distress at this time. Patient and/or em family updated on plan of care and expected duration. Pain level reassessed. Patient is alert, oriented x 3, equal unlabored respirations, skin warm/dry/pink. Vital Signs: 07:49 BP 142 / 92; Pulse 81; Resp 16; Temp 97.8; Pulse Ox 98% ; Weight 90.72 kg; Height 5 ft. hb 2 in. (157.48 cm); Pain 9/10; 09:00 BP 136 / 82; Pulse 68; Resp 18; Pulse Ox 99% on R/A; Pain 4/10; em 09:58 BP 134 / 87; Pulse 61; Resp 18; Pulse Ox 99% on R/A; em 07:49 Body Mass Index 36.58 (90.72 kg, 157.48 cm) hb ED Course: 07:32 Patient arrived in ED. mr 07:44 Jose Coles, MARE is Primary Nurse. em 07:50 Bo Johns PA is PHCP. jr8 07:50 Kevon Chavez MD is Attending Physician. jr8 07:50 Triage completed. hb 07:52 Arm band placed on. hb 07:52 Patient has correct armband on for positive identification. Bed in low position. Call em light in reach. 08:15 Initial lab(s) drawn, by me, sent to lab. Inserted saline lock: 20 gauge in left em antecubital area, using aseptic technique. Blood collected. 08:48 Patient taken to ultrasound. via wheelchair. sv 08:58 US Abdomen Limited In Process Unspecified. EDMS 09:43 CT Abd/Pelvis - IV Contrast Only In Process Unspecified. EDMS 10:25 No provider procedures requiring assistance completed. em 10:33 IV discontinued, intact, bleeding controlled, No redness/swelling at site. Pressure em dressing applied. Administered Medications: 08:15 Drug: Zofran (Ondansetron) 4 mg Route: IVP; Site: left antecubital; em 08:54 Follow up: Response: No adverse reaction; Marked relief of symptoms; Nausea is decreasedem 08:17 Drug: morphine 4 mg Route: IVP; Site: left antecubital; em 08:54 Follow up: Response: No adverse reaction; Marked relief of symptoms; Pain is decreased; em RASS: Alert and Calm (0) 10:23 Drug: GI Cocktail without - (Maalox Suspension 30 ml, Lidocaine Liquid 2 % 15 em ml) Route: PO; 10:34 Follow up: Response: No adverse reaction; Marked relief of symptoms; Pain is decreased em Outcome: 10:21 Discharge ordered by . jr8 10:32 Discharged to home ambulatory. em 10:32 Condition: good 10:32 Discharge instructions given to patient, Instructed on discharge instructions, follow up and referral plans. medication usage, Demonstrated understanding of instructions, follow-up care, medications, Prescriptions given X 1. 10:34 Patient left the ED. em Signatures: Dispatcher [employer] Sahra Goodwin, Jessika Ozuna RN, Edgar, RN RN em Bo Johns PA PA jr8 Do Valerio RN RN
--- NOTE | 2019-10-11 15:43 | EDPHYS ---
Physician Documentation [facility] Name: Viviana Patricia Age: 38 yrs Sex: Female : 1980 Arrival Date: 10/07/2019 Time: 07:32 Bed 6 Private MD: ED Physician Kevon Chavez HPI: 10/06 08:20 This 38 yrs old Female presents to ER via Ambulatory with complaints of jr8 Nausea, Abdominal Pain. 08:20 The patient presents to the emergency department with nausea, abdominal pain, of the jr8 right upper quadrant. Onset: The symptoms/episode began/occurred gradually, 1 week(s) ago, and became worse and became persistent. Possible causes: unknown. The symptoms are aggravated by nothing. The symptoms are alleviated by nothing. Associated signs and symptoms: Pertinent positives: nausea. Severity of symptoms: At their worst the symptoms were moderate in the emergency department the symptoms are unchanged. It is unknown whether or not the patient has had similar symptoms in the past. The patient has been recently seen by a physician: the patient's primary care provider. 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 - Social history:: Smoking status: Patient reports the use of cigarette tobacco products, smokes one-half pack cigarettes per day. ROS: 08:20 Eyes: Negative for injury, pain, redness, and discharge, ENT: Negative for injury, jr8 pain, and discharge, Neck: Negative for injury, pain, and swelling, Cardiovascular: Negative for chest pain, palpitations, and edema, Respiratory: Negative for shortness of breath, cough, wheezing, and pleuritic chest pain, Back: Negative for injury and pain, MS/Extremity: Negative for injury and deformity, Skin: Negative for injury, rash, and discoloration, Neuro: Negative for headache, weakness, numbness, tingling, and seizure. 08:20 Abdomen/GI: Positive for abdominal pain, nausea, Negative for vomiting, diarrhea, constipation, abdominal cramps, abdominal distension. Exam: 08:20 Constitutional: This is a well developed, well nourished patient who is awake, alert, jr8 and in no acute distress. Cardiovascular: Regular rate and rhythm with a normal S1 and S2. No gallops, murmurs, or rubs. Normal PMI, no JVD. No pulse deficits. Respiratory: Lungs have equal breath sounds bilaterally, clear to auscultation and percussion. No rales, rhonchi or wheezes noted. No increased work of breathing, no retractions or nasal flaring. Back: No spinal tenderness. No costovertebral tenderness. Full range of motion. Skin: Warm, dry with normal turgor. Normal color with no rashes, no lesions, and no evidence of cellulitis. MS/ Extremity: Pulses equal, no cyanosis. Neurovascular intact. Full, normal range of motion. Neuro: Awake and alert, GCS 15, oriented to person, place, time, and situation. Cranial nerves II-XII grossly intact. Motor strength 5/5 in all extremities. Sensory grossly intact. Cerebellar exam normal. Normal gait. 08:20 Abdomen/GI: Inspection: obese Bowel sounds: active, all quadrants, Palpation: soft, in all quadrants, mild abdominal tenderness, in the epigastric area and left upper quadrant, moderate abdominal tenderness, in the right upper quadrant, mass, is not appreciated, rebound tenderness, is not appreciated, voluntary guarding, is not appreciated, involuntary guarding, is not appreciated, no appreciated organomegaly, Indicators: McBurney's point is not tender, Duong's sign is negative, Rovsing's sign is negative, Liver: tenderness, is not appreciated. Vital Signs: 07:49 BP 142 / 92; Pulse 81; Resp 16; Temp 97.8; Pulse Ox 98% ; Weight 90.72 kg; Height 5 ft. hb 2 in. (157.48 cm); Pain 9/10; 09:00 BP 136 / 82; Pulse 68; Resp 18; Pulse Ox 99% on R/A; Pain 4/10; em 09:58 BP 134 / 87; Pulse 61; Resp 18; Pulse Ox 99% on R/A; em 07:49 Body Mass Index 36.58 (90.72 kg, 157.48 cm) hb MDM: 07:50 Patient medically screened. jr8 10:19 Differential diagnosis: Nonspecific abd pain, gastritis, pancreatitis, diverticulitis, jr8 hepatitis, biliary stone or stricture, adhesive pain, PUD, duodenal ulcer. Data reviewed: vital signs, nurses notes, lab test result(s), radiologic studies, CT scan, ultrasound. Data interpreted: Pulse oximetry: on room air is 99 %. Interpretation: normal. 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 Response to treatment: the patient's symptoms have mildly improved after treatment. Special discussion: Based on the patient's Hx, exam, and Dx evaluation, there is no indication for emergent surgery or inpatient Tx. It is understood by the patient/guardian that if the Sx's persist or worsen they need to return immediately for re-evaluation. 10/06 07:50 Order name: Basic Metabolic Panel; Complete Time: 08:56 10/06 07:50 Order name: CBC with Diff; Complete Time: 08:38 10/06 07:50 Order name: Hepatic Function; Complete Time: 08:57 10/06 07:50 Order name: Lipase; Complete Time: 08:57 10/06 07:50 Order name: Urine Microscopic Only; Complete Time: 10:10 10/06 08:33 Order name: Urine Dipstick--Ancillary (enter results); Complete Time: 09:25 10/06 07:50 Order name: IV Saline Lock; Complete Time: 08:24 10/06 07:50 Order name: Labs collected and sent; Complete Time: 08:24 10/06 08:33 Order name: Urine --Ancillary (enter results); Complete Time: 09:25 bd 10/06 08:37 Order name: US Abdomen Limited; Complete Time: 09:30 jr8 10/06 09:26 Order name: CT Abd/Pelvis - IV Contrast Only; Complete Time: 10:12 8 10/06 07:50 Order name: Urine Test (obtain specimen); Complete Time: 08:24 jr8 10/06 07:50 Order name: Urine Dipstick-Ancillary (obtain specimen); Complete Time: 08:24 8 Administered Medications: 08:15 Drug: Zofran (Ondansetron) 4 mg Route: IVP; Site: left antecubital; em 08:54 Follow up: Response: No adverse reaction; Marked relief of symptoms; Nausea is decreasedem 08:17 Drug: morphine 4 mg Route: IVP; Site: left antecubital; em 08:54 Follow up: Response: No adverse reaction; Marked relief of symptoms; Pain is decreased; em RASS: Alert and Calm (0) 10:23 Drug: GI Cocktail without - (Maalox Suspension 30 ml, Lidocaine Liquid 2 % 15 em ml) Route: PO; 10:34 Follow up: Response: No adverse reaction; Marked relief of symptoms; Pain is decreased em Disposition: 10/07/19 10:21 Discharged to Home. Impression: Right upper quadrant abdominal tenderness. - Condition is Stable. - Discharge Instructions: Abdominal Pain, Adult. - Prescriptions for Zofran 4 mg Oral Tablet - take 1 tablet by ORAL route every 12 hours As needed; 20 tablet. - Medication Reconciliation Form, Thank You Letter, Antibiotic Education, Prescription Opioid Use form. - Follow up: Private Physician; When: 2 - 3 days; Reason: Recheck today's complaints, Continuance of care, Re-evaluation by your physician. - Problem is new. - Symptoms have improved. Signatures: Dispatcher [employer] Jose Winter RN RN em Bo Johns PA PA jr8 Do Valerio RN RN Corrections: (The following items were deleted from the chart) 10:34 10:21 10/07/2019 10:21 Discharged to Home. Impression: Right upper quadrant abdominal em tenderness. Condition is Stable. Forms are Medication Reconciliation Form, Thank You Letter, Antibiotic Education, Prescription Opioid Use. Follow up: Private Physician; When: 2 - 3 days; Reason: Recheck today's complaints, Continuance of care, Re-evaluation by your physician. Problem is new. Symptoms have improved. jr8
== END 2019-10-07 10:34 | disposition home or self-care (01) ==
LOC: ER 07:28
DX: R10.811 Right upper quadrant abdominal tenderness (principal); I10 Essential (primary) hypertension; E11.9 Type 2 diabetes mellitus without complications; F31.9 Bipolar disorder, unspecified; E78.5 Hyperlipidemia, unspecified; F17.210 Nicotine dependence, cigarettes, uncomplicated
CPT/HCPCS: 85025; 80048; 36415; 81025; 80076; 83690; 74177; 76705; 96375; 96374; 99284; Q9967; J2405; 81003; 81015